=== PATIENT | female | born 1980 | race Caucasian/White ===

== ENCOUNTER → 2020-07-25 07:41 | Outpatient (REF) | payer OTHER, SELFPAY ==
--- NOTE | 2020-07-25 08:08 | CA_ITS ---
Acquisition Time: 2020-07-25 08:11:47 Total Exercise Time: 00:05:31 Test Indications: Chest Pain Medications: OMEPRAZOLE PRO AIR LORAZAPAM Protocol: ANN MARIE Max HR: 155 BPM 86% of Pred: 179 BPM Max BP: 178/078 mmHG Max Work Load: 7.0 METS Exercise stress test using Ann Marie protocol, total of 5 min 31 sec. Pt tolerated well, denies any anginal sx. EKG with isolated PVC's. No ischemic changes seen during exercise or in recovery. Hypotensive response to exercise. Test reviewed with Dr. Butler. Referred By: Jeff Yuan Overread By: Lisseth Shipley NP
== END ==
LOC: HO.CARD 07:41
PROVIDERS: Visit Provider Internal Medicine Medical Oncology
DX: R07.9 Chest pain, unspecified (principal); R20.2 Paresthesia of skin; E66.9 Obesity, unspecified
CPT/HCPCS: 93017; 93018

== ENCOUNTER 2020-08-03 16:57 | Outpatient (REF) | payer OTHER, SELFPAY ==
--- NOTE | ~2020-08-03 | XR_ITS ---
EXAMINATION: XR CHEST CLINICAL INFORMATION: Chest pain COMPARISON: None TECHNIQUE: 2 views of the chest were obtained. FINDINGS: No significant abnormality is noted involving the heart, lungs, mediastinum, bony thorax or soft tissues. XR/XR chest 2V IMPRESSION: Unremarkable chest pain.
== END 2020-08-03 16:58 | disposition home or self-care (01) ==
LOC: HO.XRAY 16:57
PROVIDERS: PCP Internal Medicine Medical Oncology; Visit Provider Internal Medicine Medical Oncology
DX: R07.89 Other chest pain (principal)
CPT/HCPCS: 71046

== ENCOUNTER 2020-08-18 09:23 | Outpatient (REF) | payer OTHER, SELFPAY ==
--- NOTE | ~2020-08-18 | US_ITS ---
EXAMINATION: US ABDOMEN COMPLETE CLINICAL INFORMATION: Chest pressure. Epigastric pain. COMPARISON: Chest radiographs 08/03/2020 TECHNIQUE: Real-time imaging of the abdominal viscera. FINDINGS: PANCREAS: The pancreas is normal in size and contour and echogenicity. There is no pancreatic ductal distention or retroperitoneal effusion. ABDOMINAL AORTA: The proximal, mid, and distal segments are normal in caliber. INFERIOR VENA CAVA: Visualized portions are normal. LIVER: The liver is normal in size and smooth in contour. Echogenicity is borderline increased which may suggest mild hepatic steatosis. There is no focal hepatic parenchymal lesion or intrahepatic ductal dilatation. GALLBLADDER: The gallbladder is normal in size. There are no calculi, wall thickening, or pericholecystic fluid. Negative sonographic Ashton's sign. There are 2 small gallbladder polyps projecting into the lumen, both just under 3 mm. COMMON BILE DUCT: Normal in caliber measuring 0.4 cm in diameter. RIGHT KIDNEY: Normal. No hydronephrosis. No renal calculi or focal parenchymal lesions. The kidney measures 10.8 cm in maximum dimension. LEFT KIDNEY: Normal. No hydronephrosis. No renal calculi or focal parenchymal lesions. The kidney measures 11.4 cm in maximum dimension. SPLEEN: Normal. The spleen measures 9.3 cm in maximum dimension. FREE FLUID: None. US/US abdomen complete IMPRESSION: 1. Gallbladder: 2 small polyps both just under 3 mm. No calculi, gallbladder wall thickening, or biliary ductal dilatation. 2. Borderline hepatic steatosis. Normal pancreas. 3. No hydronephrosis.
== END 2020-08-18 09:24 | disposition home or self-care (01) ==
LOC: HO.US 09:23
PROVIDERS: PCP Internal Medicine Medical Oncology; Visit Provider Internal Medicine Medical Oncology
DX: R10.13 Epigastric pain (principal); R07.89 Other chest pain; E66.9 Obesity, unspecified
CPT/HCPCS: 76700

== ENCOUNTER 2021-11-07 10:10 | Outpatient (REF) | payer OTHER, SELFPAY ==
[2021-11-07 10:30] LABS: MANUAL DIFF FLAG NO
[2021-11-07 10:48] LABS: Basophils Absolute Auto 0.1 X10*3/uL (0.0-0.2); Basophils Percent Auto 1.3 % (0-2); Eosinophils Absolute Auto 0.2 X10*3/uL (0.0-0.4); Eosinophils Percent Auto 2.7 % (0-4); Hemoglobin 10.7 g/dl (12.0-16.0); Imm Gran Abs Auto 0.01 X10*3/uL (0.00-0.03); Imm Gran Pct Auto 0.1 % (0.0-0.4); Lymphocytes Absolute Auto 2.9 X10*3/uL (1.2-4.9); Lymphocytes Percent Auto 41.9 % (20-40); Mean Corpuscular HGB Conc 31.5 g/dl (31.0-35.0); Mean Corpuscular Hemoglobin 27.2 pg (27.0-33.0); Mean Corpuscular Volume 86.5 fL (80.0-98.0); Mean Platelet Volume 10.2 fL (9.4-12.3); Monocytes Absolute Auto 0.6 X10*3/uL (0.1-1.2); Monocytes Percent Auto 7.9 % (2-11); Neutrophils Absolute Auto 3.2 x10*3/uL (2.0-8.3); Neutrophils Percent Auto 46.1 % (45-73); Platelet Count 515 X10*3/uL (160-400); Red Blood Count 3.93 X10*6/uL (4.20-5.50); Red Cell Distribution Width 15.9 % (11.0-16.0)
[2021-11-07 11:20] LABS: Alanine Aminotransferase 12 U/L (0-31); Albumin Level 4.1 g/dL (3.5-5.0); Alkaline Phosphatase 77 U/L (39-117); Anion Gap 16 (12-20); Aspartate Amino Transferase 13 U/L (5-31); Bilirubin Total 0.4 mg/dL (0.0-1.0); Blood Urea Nitrogen 12 mg/dL (9-16); Calcium 9.3 mg/dL (8.4-10.2); Carbon Dioxide 24 mmol/L (22-29); Chloride 108 mmol/L (96-108); Cholesterol 198 mg/dL; Estimated Glomerular Filt Rate > 60; Glucose Fasting 92 mg/dL (60-99); HDL Cholesterol 42 mg/dL; LDL Cholesterol Calculated 133 mg/dl; Potassium 4.7 mmol/L (3.3-5.1); Sodium 143 mmol/L (135-145); Total Protein 6.9 g/dL (6.5-8.0); Triglycerides 116 mg/dL
== END 2021-11-07 10:11 | disposition home or self-care (01) ==
LOC: HO.LAB 10:10
PROVIDERS: PCP Internal Medicine Medical Oncology; Visit Provider Internal Medicine Medical Oncology
DX: E66.9 Obesity, unspecified (principal)
CPT/HCPCS: 36415; 80053; 80061; 85025

== ENCOUNTER → 2021-12-01 12:33 | Outpatient (BNVA) | payer OTHER, SELFPAY | PROVIDERS: PCP Internal Medicine Medical Oncology; Visit Provider Nurse Practitioner Family | DX: G47.00 Insomnia, unspecified (principal); R06.83 Snoring; R40.0 Somnolence | CPT/HCPCS: 99202 ==

== ENCOUNTER → 2021-12-25 13:01 | Outpatient (REF) | payer OTHER, SELFPAY | LOC: HO.SL 13:01 | PROVIDERS: PCP Internal Medicine Medical Oncology; Visit Provider Nurse Practitioner Family | DX: G47.00 Insomnia, unspecified (principal); R40.0 Somnolence; R06.83 Snoring | CPT/HCPCS: 95806 ==

== ENCOUNTER 2022-02-28 10:29 | Outpatient (REF) | payer OTHER, SELFPAY ==
--- NOTE | ~2022-02-28 | MM_ITS ---
EXAMINATION: MM SCREENING DIGITAL BREAST TOMOSYNTHESIS, BILATERAL CLINICAL INFORMATION: Screening. Asymptomatic. The lifetime risk of breast cancer based on the Tyrer-Cuzick Model is 7.7%. COMPARISON: Mammography: May 13, 2019 TECHNIQUE: Digital breast tomosynthesis is performed in both the craniocaudal and mediolateral oblique views along with computer-aided detection (CAD). Synthesized 2D images are generated from the tomosynthesis. FINDINGS: There are scattered areas of fibroglandular density (ACR BI-RADS breast composition Category b). There are no significant masses, abnormal calcifications, or other abnormalities. MM/MM tomosynthesis screening BI IMPRESSION: No significant changes from prior exam. ASSESSMENT: BI-RADS 1: Negative RECOMMENDATION: Routine annual mammography screening. This patient's information was entered into a reminder system with a target due date for their next mammogram.
== END 2022-02-28 10:30 | disposition home or self-care (01) ==
LOC: HO.MAMMO 10:29
PROVIDERS: PCP Internal Medicine Medical Oncology; Visit Provider Internal Medicine Medical Oncology
DX: Z12.31 Encounter for screening mammogram for malignant neoplasm of breast (principal)
CPT/HCPCS: 77063; 77067

== ENCOUNTER → 2022-04-16 09:22 | Outpatient (BNVA) | payer OTHER, SELFPAY | PROVIDERS: PCP Internal Medicine Medical Oncology; Visit Provider Nurse Practitioner Family | DX: R20.0 Anesthesia of skin (principal); R20.2 Paresthesia of skin; G47.00 Insomnia, unspecified; R06.83 Snoring | CPT/HCPCS: 99212 ==

== ENCOUNTER → 2022-09-17 09:00 | Outpatient (BNVA) | payer OTHER, SELFPAY | PROVIDERS: PCP Internal Medicine Medical Oncology; Visit Provider Nurse Practitioner Family | DX: R20.0 Anesthesia of skin (principal); R20.2 Paresthesia of skin; G47.00 Insomnia, unspecified; R06.83 Snoring | CPT/HCPCS: 99212 ==

== ENCOUNTER 2023-02-18 09:18 | Emergency (ER) | payer OTHER, SELFPAY ==
--- NOTE | ~2023-02-18 | XR_ITS ---
EXAMINATION: XR LUMBOSACRAL SPINE CLINICAL INFORMATION: Lower back pain COMPARISON: None available. TECHNIQUE: Three views of the lumbosacral spine. FINDINGS: There is normal lumbar lordosis. The vertebral heights, alignment and disc heights are normal. No visible acute fracture, dislocation or subluxation seen. No aggressive lytic or sclerotic process. The paravertebral soft tissues are normal. XR/XR lumbar spine 2-3V IMPRESSION: Unremarkable lumbar spine exam.
[2023-02-18 09:39] VITALS: BP 117/64; PULSE 71; RESP 18; TEMP 36.6; O2SAT 98
[2023-02-18 09:48] VITALS: BP 117/45; PULSE 73; RESP 16; TEMP 36.8; O2SAT 98
--- NOTE | 2023-02-18 09:59 | ED.BACK ---
HPI - Back Pain/Injury General Chief Complaint: Back Pain/Injury Stated Complaint: back pain Time Seen by Provider: 02/18/23 09:55 Source: patient Mode of arrival: ambulatory Limitations: no limitations History of Present Illness HPI Narrative: 42 year old female hx of insomnia presents w/ lower back pain for the past 3 days worsening. Patient reports that this started at work while lifting creates weighed about 20 lb she reports when she went to put a great down and then stood up she immediately started having pain to the right lower back, pain is worse with movement better at rest. She reports she has had back pain in the past this feels similar. She reports at this time pain radiates all over. She denies numbness, tingling, saddle paresthesias, urinary/bowel incontinence/retention, weakness, fevers, chills, history of IV drug abuse. Related Data Home Medications Medication Instructions Recorded Confirmed fexofenadine-pseudoephedrine ER 1 tab PO QAM 12/01/21 12/01/21 180 mg-240 mg tablet,ext.release 24 hr (Natasha-D 24 Hour) fluoxetine 10 mg capsule 30 mg PO DAILY 12/01/21 12/01/21 omeprazole 40 mg capsule,delayed 40 mg PO DAILY 12/01/21 12/01/21 release valacyclovir 500 mg tablet 500 mg PO DAILY PRN 12/01/21 12/01/21 Previous Rx's Medication Instructions Recorded trazodone 50 mg tablet 50 mg PO BEDTIME 30 days #30 tabs 09/17/22 lidocaine 5 % topical patch 1 patch topical DAILY PRN pain #15 02/18/23 ea naproxen 500 mg tablet 500 mg PO BID #14 tabs 02/18/23 prednisone 20 mg tablet 40 mg (2 x 20 mg) PO DAILY 5 days 02/18/23 #10 tabs Allergies Allergy/AdvReac Type Severity Reaction Status Date / Time Seasonal Allergies Allergy Runny Nose Verified 09/17/22 09:16 Review of Systems Review of Systems: Constitutional : No Weight loss, No Fever, No Chills, ENT/Mouth : No Hearing loss, No Ear Pain, No Nasal Congestion, No Sinus Pain, No Hoarseness, No sore throat, No Rhinorrhea, No Swallowing Difficulty Cardiovascular : No Chest Pain, No SOB Respiratory : No Cough, No Dyspnea Gastrointestinal : No Nausea, No Vomiting, No Diarrhea, No abdominal Pain, No Hematochezia, No Melena Genitourinary : No Dysuria, No Urinary Frequency, No Hematuria, No Urinary Incontinence, Musculoskeletal : positive back pain Skin : No Skin Lesions, No rash Neuro : No Weakness, No Numbness, No Paresthesias, no loss of bowel or bladder incontinence, no saddle anesthesia Yes all other systems are reviewed and are negative [facility] Past Medical History Attestation statement: The following information was validated with the patient. Source: old records reviewed and nursing notes reviewed Family History Family History (Updated 09/17/22 @ 09:18 by Ele Dubon CMA) Mother TIA (transient ischemic attack) Social History Social History (Updated 09/17/22 @ 09:18 by Ele Dubon CMA) Household Members: None Alcohol intake: never Patient Tobacco Use Status: Former Tobacco user Advance Directives: No Advance Directives Information Provided: No Physical Exam Vital Signs: Vital Signs: Last Vital Signs Temp 98.2 F 02/18/23 09:48 Pulse 73 02/18/23 09:48 Resp 16 02/18/23 09:48 BP 117/45 L 02/18/23 09:48 Pulse Ox 98 02/18/23 09:48 O2 Del Method Room Air 02/18/23 09:48 BMI result Body Mass Index 30.0 vss Appearance: Alert.? Oriented X3.? No acute distress.? Head: Normocephalic, atraumatic, no step-offs or deformities Eyes: Pupils equal, round and reactive to light.? CVS: Normal heart rate and rhythm.? Pulses normal.? Respiratory: No respiratory distress.? Breath sounds normal.? Abdomen: Soft and nontender.? Skin: Skin warm and dry.? Normal skin color.? Normal skin turgor.? Extremities: No lower extremity edema.? No calf ttp. 5/5 strength to bilateral upper and lower extremities Back: No midline tenderness, no C-spine tenderness, full range of motion, no CVA tenderness bilaterally + right sided paraspinous tenderness throught lumbar region. No midline tenderness. Neuro: Oriented X 3.? No motor deficit.? No sensory deficit. CN 2-12 intact . No saddle paresthesias. Ambulating with steady gait normal coordination. Course Reevaluation(s) Reevaluation #1: Patient has been ambulatory without difficulty, still complaining of pain however. Will discharge home with NSAID, prednisone, Lidoderm patch. X-ray unremarkable. Will give her follow-up with [facility]. Educated patient on diagnosis and treatment plan, answered all question, patient verbalizes understanding. At this time patient will be discharged home, advised to return with new or worsening symptoms. Educated on worrisome signs and symptoms and when to return. At this time I feel comfortable discharge home. Time: 11:24 Medications Administered Discontinued Medications Generic Name Dose Route Start Last Admin Trade Name Leland PRN Reason Stop Dose Admin Ketorolac Tromethamine 30 mg 02/18/23 10:00 02/18/23 10:10 Ketorolac Tromethamine 15 Mg/Ml Vial IM 02/18/23 10:01 30 mg ONCE ONE Administration Lidocaine 1 patch 02/18/23 10:00 02/18/23 10:10 Lidocaine 4 % Patch Adh..Patch TRANSDERMA 02/18/23 10:01 1 patch ONCE ONE Administration Protocol Medical Decision Making Medical Decision Making MDM Narrative: 42-year-old female presents with right-sided lower back pain status post lifting. Started on Saturday. Flag symptoms Physical exam significant for right sided paraspinous tenderness throught lumbar region. No midline tenderness. Patient is ambulatory. No saddle paresthesias. Vital signs are stable. No fevers This is likely lumbar paraspinous muscle spasms versus lumbago versus herniated disc versus sciatica versus lumbar radiculopathy. Unlikely cauda equina, epidural abscess, cord compression. Plan will give Toradol, Lidoderm patch. Imaging pending Differential Diagnosis Differential Diagnoses: The differential diagnosis associated with the presentation includes This is likely lumbar paraspinous muscle spasms versus lumbago versus herniated disc versus sciatica versus lumbar radiculopathy. Unlikely cauda equina, epidural abscess, cord compression. Admission/Observation Consideration of admission/observation: Escalation of care including admission/observation considered not indicated Independent Interpretation I performed an independent interpretation of an: Plain X-Ray Radiology Impression Discussion of test interpretation with radiology: I have reviewed the radiologist's reading. Tests considered The following testing was considered but not selected: no red flag sx no indication for MRI Prescription Management I considered prescription management with: Pain Medication and Other (prednisone, lidoderm ) Chronic Conditions Patient?s care impacted by: Other (insomnia ) Critical Care Time Critical Care Time Critical Care Time: No Discharge Plan Discharge Clinical Impression: Lumbar radiculopathy Patient Disposition: Home, Self-Care Instructions: Lumbar Radiculopathy (ED), Back Pain (ED) Additional Instructions: Take your medications as prescribed. If you were prescribed antibiotics today, it is important that you take your medication to their entirety, do not skip any doses, do not finish them early. Follow-up with your primary care provider this week. Return to the emergency department with new or worsening symptoms. Such as fevers, chills, chest pain, shortness of breath, nausea, vomiting, dizziness, headache, vision changes, lethargy In case of emergency call 911 XR/XR lumbar spine 2-3V IMPRESSION: Unremarkable lumbar spine exam. Prescriptions: New prednisone 20 mg tablet 40 mg PO DAILY 5 Days Qty: 10 0RF lidocaine 5 % adhesive patch,medicated 1 patch topical DAILY PRN (Reason: pain) Qty: 15 0RF Rx Instructions: leave on most painful area for up to 12 hrs naproxen 500 mg tablet 500 mg PO BID Qty: 14 0RF No Action omeprazole 40 mg capsule,delayed release(DR/EC) 40 mg PO DAILY fexofenadine-pseudoephedrine [Natasha-D 24 Hour] 180-240 mg tablet extended release 24 hr 1 tab PO QAM fluoxetine 10 mg capsule 30 mg PO DAILY valacyclovir 500 mg tablet 500 mg PO DAILY PRN trazodone 50 mg tablet 50 mg PO BEDTIME 30 Days Qty: 30 2RF Referrals: Jeff Yuan MD [Primary Care Provider] - 2 days [facility] [Provider Group] - 2 days Stand Alone Forms: Work/School Release
[2023-02-18] MEDS: Ketorolac Tromethamine 15 MG/ML VIAL 30 MG IM (10:10)
[2023-02-18] MEDS: Lidocaine 4 % Patch ADH..PATCH 1 PATCH TRANSDERMA (10:10)
--- NOTE | 2023-02-18 10:14 | PC.NURSE ---
medication administered per provider order.
== END 2023-02-18 11:51 | disposition home or self-care (01) ==
PROVIDERS: Emergency Provider Emergency Medicine; PCP Internal Medicine Medical Oncology
DX: M54.16 Radiculopathy, lumbar region (principal); Z87.891 Personal history of nicotine dependence
CPT/HCPCS: 72100; 96372; 99283; 99284; J1885

== ENCOUNTER 2023-03-04 10:40 | Outpatient (AMB) | payer OTHER, SELFPAY ==
[2023-03-04 10:44] VITALS: BP 132/86; PULSE 58; O2SAT 96; BMI 30.6
--- NOTE | 2023-03-04 10:44 | MHC.OFFVIS ---
Intake Vital Signs 03/04/23 10:44 Height 5 ft 9 in Weight 207 lb 6 oz BMI 30.6 BP 132/86 Blood Pressure Location Rt brachial Position Sitting Pulse 58 Pulse Source Pulse Oximeter Pulse Oximetry (%) 96 Oxygen Delivery Method Room Air Intake Visit Reasons: 6m follow up/ Confirmed Intake Note: Pt presents to the office today for a 6 month follow up. Allergies Seasonal Allergies Allergy (Verified 03/04/23 10:48) Runny Nose HPI HPI Comments History of Present Illness Details 42 y/o female patient presents for follow up of insomnia. Pt reports that she has not refilled her trazodone and tried melatonin 12 mg. She sleeps well with melatonin 12 mg. She had a new bed, but she feels it is not comfortable. She also shares bed with her 6 year old son now, and it disrupt her sleep. She strained her lower back at work, and plans to schedule with [employer]. She can move and walk but still has restriction. She had hx of cervical spine bulging disc. The home sleep study result was no evidence of sleep apnea. The AHI was 2.6, average O2 sat was 93%, with lowest O2 sat was 82%. Below 88% for 0.3 min. No headache reports. PFSH Family History Mother TIA (transient ischemic attack) Social History Household Members: None Alcohol intake: never Patient Tobacco Use Status: Former Tobacco user Review of Systems Const All systems reviewed & are unremarkable except as noted in HPI and below ENT Reports Normal hearing present Neuro Reports Normal hearing present Physical Exam Vital Signs: Last Vital Signs Pulse 58 03/04/23 10:44 BP 132/86 03/04/23 10:44 Pulse Ox 96 03/04/23 10:44 Oxygen Delivery Method Room Air 03/04/23 10:44 BMI result Body Mass Index 30.6 Const General: cooperative Nutritional Appearance: obese Orientation/consciousness: patient oriented x3 Neck Neck: Yes full ROM and Yes supple Resp Effort & Inspection: normal respiratory effort and able to speak in complete sentences Neuro General: patient oriented x3, gait normal, moves all extremities and no focal motor deficits Cranial nerves: Yes Midline tongue present, Yes Symmetric palate elevation present, Yes Normal hearing present, Yes Ability to bilaterally rotate head present and Yes Ability to bilaterally elevate shoulders present Cognition (Neuro): normal cognition Deep tendon reflexes (DTR's): Right triceps reflex intensity grade: 2+, Left triceps reflex intensity grade: 2+, Rt Biceps (C5, C6): 2+, Left biceps reflex intensity grade: 2+, Right brachioradialis reflex intensity grade: 2+ and Left brachioradialis reflex intensity grade: 2+ Psych Appearance: grossly normal Mental Status: mental status grossly normal Speech and movement: Normal speech and movement present Affect: Anxious affect present Assessment & Plan Assessment & Plan (1) Insomnia: Code(s): G47.00 - Insomnia, unspecified (2) Snoring: Code(s): R06.83 - Snoring Plan Continue to practice good sleep hygiene. Continue to use melatonin 12 mg as needed. Coding Level of Care Code Est Pt Level 3 (92088) Diagnoses Insomnia G47.00 Snoring R06.83
== END 2023-03-04 11:08 | disposition home or self-care (01) ==
PROVIDERS: PCP Internal Medicine Medical Oncology; Visit Provider Nurse Practitioner Family
DX: G47.00 Insomnia, unspecified (principal); R06.83 Snoring
CPT/HCPCS: 99213

== ENCOUNTER → 2023-03-04 10:40 | Outpatient (BNVA) | payer OTHER, SELFPAY | PROVIDERS: PCP Internal Medicine Medical Oncology; Visit Provider Nurse Practitioner Family | DX: G47.00 Insomnia, unspecified (principal); R06.83 Snoring | CPT/HCPCS: 99212 ==

== ENCOUNTER 2023-03-22 10:04 | Outpatient (REF) | payer OTHER, SELFPAY ==
--- NOTE | ~2023-03-22 | XR_ITS ---
EXAMINATION: XR CHEST CLINICAL INFORMATION: Cough COMPARISON: Previous chest x-ray July 2020 TECHNIQUE: 2 views of the chest were obtained. FINDINGS: No significant abnormality is noted involving the heart, lungs, mediastinum, bony thorax or soft tissues. XR/XR chest 2V IMPRESSION: Unremarkable examination.
[2023-03-22 10:44] LABS: MANUAL DIFF FLAG NO
[2023-03-22 10:47] LABS: Basophils Absolute Auto 0.1 X10*3/uL (0.0-0.2); Basophils Percent Auto 0.4 % (0-2); Eosinophils Percent Auto 0.1 % (0-4); Hematocrit 35.9 % (37.0-47.0); Hemoglobin 11.6 g/dl (12.0-16.0); Imm Gran Abs Auto 0.05 X10*3/uL (0.00-0.03); Imm Gran Pct Auto 0.4 % (0.0-0.4); Lymphocytes Absolute Auto 2.3 X10*3/uL (1.2-4.9); Lymphocytes Percent Auto 16.4 % (20-40); Mean Corpuscular HGB Conc 32.3 g/dl (31.0-35.0); Mean Corpuscular Volume 86.5 fL (80.0-98.0); Mean Platelet Volume 9.6 fL (9.4-12.3); Neutrophils Absolute Auto 10.4 x10*3/uL (2.0-8.3); Neutrophils Percent Auto 75.7 % (45-73); Platelet Count 438 X10*3/uL (160-400); Red Blood Count 4.15 X10*6/uL (4.20-5.50); Red Cell Distribution Width 16.2 % (11.0-16.0); White Blood Count 13.8 X10*3/uL (4.8-10.8)
[2023-03-22 13:59] LABS: Alanine Aminotransferase 10 U/L (0-31); Albumin Level 4.3 g/dL (3.5-5.0); Alkaline Phosphatase 89 U/L (39-117); Anion Gap 16 (12-20); Aspartate Amino Transferase 16 U/L (5-31); Bilirubin Total 0.3 mg/dL (0.0-1.0); Blood Urea Nitrogen 10 mg/dL (9-16); Carbon Dioxide 22 mmol/L (22-29); Chloride 104 mmol/L (96-108); Estimated Glomerular Filt Rate > 60; Glucose Random 101 mg/dL (60-115); Potassium 3.9 mmol/L (3.3-5.1); Sodium 138 mmol/L (135-145); Total Protein 7.9 g/dL (6.5-8.0)
== END 2023-03-22 10:05 | disposition home or self-care (01) ==
LOC: HO.LAB 10:04
PROVIDERS: PCP Internal Medicine Medical Oncology; Visit Provider Internal Medicine Medical Oncology
DX: R05.9 Cough, unspecified (principal); E66.3 Overweight
CPT/HCPCS: 36415; 71046; 80053; 85025

== ENCOUNTER 2023-03-27 15:39 | Emergency (ER) | payer OTHER, SELFPAY ==
--- NOTE | ~2023-03-27 | XR_ITS ---
EXAMINATION: XR CHEST CLINICAL INFORMATION: Cough and shortness of breath COMPARISON: 03/22/2023 TECHNIQUE: 2 views of the chest were obtained. FINDINGS: No significant abnormality is noted involving the heart, lungs, mediastinum, or bony thorax. Left supraclavicular rounded density again seen. Left axillary calcification again noted. XR/XR chest 2V IMPRESSION: No acute cardiopulmonary disease or interval change.
[2023-03-27 16:10] VITALS: BP 121/80; PULSE 81; RESP 18; TEMP 37.6; O2SAT 92; BMI 28.5
--- NOTE | 2023-03-27 16:10 | ED.URI ---
HPI - URI/Sore Throat General Chief Complaint: Upper Respiratory Symptoms Stated Complaint: possible respiratory infection Time Seen by Provider: 03/27/23 17:40 Source: patient Mode of arrival: ambulatory Limitations: no limitations History of Present Illness HPI Narrative: Patient is a 42-year-old female who presents emergency department for evaluation of headache, cough, congestion, chest discomfort while coughing, shortness of breath fatigue, dyspnea with exertion. Symptom onset 2 weeks ago progressively worsening. Denies fevers, chills, neck pain, neck stiffness, numbness or tingling of the extremities. Related Data Home Medications Medication Instructions Recorded Confirmed fexofenadine-pseudoephedrine ER 1 tab PO QAM 12/01/21 12/01/21 180 mg-240 mg tablet,ext.release 24 hr (Natasha-D 24 Hour) fluoxetine 10 mg capsule 30 mg PO DAILY 12/01/21 12/01/21 omeprazole 40 mg capsule,delayed 40 mg PO DAILY 12/01/21 12/01/21 release valacyclovir 500 mg tablet 500 mg PO DAILY PRN 12/01/21 12/01/21 Previous Rx's Medication Instructions Recorded trazodone 50 mg tablet 50 mg PO BEDTIME 30 days #30 tabs 09/17/22 lidocaine 5 % topical patch 1 patch topical DAILY PRN pain #15 02/18/23 ea Allergies Allergy/AdvReac Type Severity Reaction Status Date / Time Seasonal Allergies Allergy Runny Nose Verified 03/04/23 10:48 Review of Systems Review of Systems: Yes all other systems are reviewed and are negative PMFSH Past Medical History Attestation statement: The following information was validated with the patient. Source: old records reviewed Family History Family History Mother TIA (transient ischemic attack) Social History Social History Household Members: None Alcohol intake: never Patient Tobacco Use Status: Former Tobacco user Smoked in Last 30 Days: No Use of substances other than those prescribed or required for medical reasons: No Advance Directives: No Advance Directives Information Provided: No Patient : No Physical Exam Vital Signs: Vital Signs: Last Vital Signs Temp 99.0 F 03/27/23 19:37 Pulse 71 03/27/23 19:37 Resp 16 03/27/23 19:37 BP 117/56 L 03/27/23 19:37 Pulse Ox 93 03/27/23 19:37 O2 Del Method Room Air 03/27/23 19:37 BMI result Body Mass Index 28.5 Appearance: Alert.?Oriented to person, place and time. No acute distress.?Normal affect. Eyes: Pupils equal, round and reactive to light.? ENT: Pharynx normal.?? Neck: Normal inspection.? Neck supple.??No cervical lymphadenopathy. CVS: Heart sounds normal. Normal heart rate and rhythm.? Pulses normal.?? Respiratory: No respiratory distress.? Lung sounds with rhonchi to the bilateral upper lobes clear to the bases? Abdomen: Soft and non-tender. Normoactive bowel sounds. Skin: Skin warm and dry.? Normal skin color. Extremities: No lower extremity edema.? No calf ttp? Neuro: Moves all extremities spontaneously. Sensation intact bilaterally. No focal neuro deficits. Ambulates with normal steady gait. Course Course Course Narrative: RME: 42 yo M/F w/PMHx Asthma presenting to the ED c/o MACARIO, cough & SOB x weeks. +CP when coughing good air movement, satting 92% RA. Dry cough appreciated viral testing, CXR, ED bronch protocol ordered Full HPI, ROS and PE to be performed by primary ED provider. Medications Administered Discontinued Medications Generic Name Dose Route Start Last Admin Trade Name Freq PRN Reason Stop Dose Admin Albuterol Sulfate 4 puff 03/27/23 16:33 03/27/23 16:36 Albuterol Sulfate 90 Mcg 8 Gm Inhaler INHALE 03/27/23 16:34 4 puff ONCE ONE Administration Prednisone 60 mg 03/27/23 17:54 03/27/23 18:11 Prednisone 20 Mg Tablet PO 03/27/23 17:55 60 mg ONCE ONE Administration Medical Decision Making Medical Decision Making MDM Narrative: Patient is a 42 old female with past medical history of asthma presenting to emergency department for evaluation of URI symptoms as per HPI. At time examination she appears fatigued, at rest she is without increased work of breathing able speak clear full sentences. She does have some dyspnea upon exertion, ambulatory O2 trial for O2 saturation remained at 92% and above. She received 4 puffs of an albuterol inhaler and prednisone and reports significant improvement She is noted to be COVID-19 positive. Given her duration of symptoms, would not be a candidate for Paxlovid. Chest x-ray is without acute cardiopulmonary abnormalities, no evidence of pneumonia. At this time plan for discharge home, outpatient follow-up with primary care provider, reviewed worrisome signs and symptoms that would warrant re-evaluation emergency department. All questions answered. Stable for discharge. Differential Diagnosis Differential Diagnoses: The differential diagnosis associated with the presentation includes Admission/Observation Consideration of admission/observation: Escalation of care including admission/observation considered (See note above and course narrative for further detail) Lab Data MDM Lab Attestation statement: I reviewed the patient's lab results. Labs: Lab Results 03/27/23 Range/Units 16:56 COVID-19 (GENE) Positive A (Negative) COVID-19 Clin Com See Note Influenza Type A (CALLIE) Negative (Negative) Influenza Type B (CALLIE) Negative (Negative) Influenza A & B Note See Note Independent Interpretation I performed an independent interpretation of an: Plain X-Ray (I personally interpreted chest x-ray and agree with radiologist impression.) Radiology Impression Discussion of test interpretation with radiology: I have reviewed the radiologist's reading. Radiologist Impression: XR/XR chest 2V IMPRESSION: No acute cardiopulmonary disease or interval change. External Record Review External record reviewed: Outpatient record Prescription Management I considered prescription management with: Antiviral (Given duration of symptoms, would not be candidate for Paxlovid) Chronic Conditions Patient?s care impacted by: Other (Asthma) Discharge Plan Discharge Clinical Impression: COVID-19 Patient Disposition: Home, Self-Care Instructions: COVID-19 (Coronavirus Disease 2019) (ED) Additional Instructions: Be sure to rest, stay well hydrated drinking plenty of fluids, eat small frequent meals. Tylenol/ibuprofen can be used as needed for fever/pain. [id number] cold medications may be helpful as well for symptoms. Saline nasal spray, humidifier may be helpful for nasal congestion. You may return to the emergency department with any new or worsening symptoms or concerns. Follow-up with your primary care provider as needed. Should remain out of school/ work until symptoms have resolved and have been without a fever for 24 hours without the use of Tylenol or ibuprofen. Prescriptions: No Action lidocaine 5 % adhesive patch,medicated 1 patch topical DAILY PRN (Reason: pain) Qty: 15 0RF Rx Instructions: leave on most painful area for up to 12 hrs omeprazole 40 mg capsule,delayed release(DR/EC) 40 mg PO DAILY fexofenadine-pseudoephedrine [[place]-D 24 Hour] 180-240 mg tablet extended release 24 hr 1 tab PO QAM fluoxetine 10 mg capsule 30 mg PO DAILY valacyclovir 500 mg tablet 500 mg PO DAILY PRN trazodone 50 mg tablet 50 mg PO BEDTIME 30 Days Qty: 30 2RF Referrals: Jeff Yuan MD [Primary Care Provider] -
[2023-03-27] MEDS: Albuterol Sulfate 90 MCG 8 GM INHALER 4 PUFF INHALE (16:36)
[2023-03-27 16:37] VITALS: PULSE 88; RESP 16; O2SAT 92
[2023-03-27 17:36] LABS: COVID-19 Test Positive (Negative); IDNOW Serial# 58CA691E
[2023-03-27 17:38] LABS: IDNOW Serial# 08D9AD1C; Influenza A Negative (Negative); Influenza B2 Negative (Negative)
--- NOTE | 2023-03-27 17:55 | MHC.EDTECH ---
Walked patient and patient destated to 88% and Dottie BURGESS notified
[2023-03-27] MEDS: predniSONE 20 MG TABLET 60 MG PO (18:11)
[2023-03-27 19:37] VITALS: BP 117/56; PULSE 71; RESP 16; TEMP 37.2; O2SAT 93
--- NOTE | 2023-03-27 19:41 | MHC.EDTECH ---
Walked patient and 02 stat 92%
== END 2023-03-27 20:36 | disposition home or self-care (01) ==
PROVIDERS: Physician Assistant; Emergency Provider Emergency Medicine; PCP Internal Medicine Medical Oncology
DX: U07.1 COVID-19 (principal); J45.909 Unspecified asthma, uncomplicated
CPT/HCPCS: 71046; 87502; 87635; 94640; 99284

== ENCOUNTER 2023-04-01 10:41 | Emergency (ER) | payer OTHER, SELFPAY ==
--- NOTE | 2023-04-01 11:27 | ED.EYEPROB ---
HPI - Eye Problem General Chief complaint: Eye Problems Stated complaint: L eye pain Time Seen by Provider: 04/01/23 15:19 Source: patient Mode of arrival: ambulatory Limitations: no limitations History of Present Illness HPI Narrative: Patient is a 42-year-old female presenting to the emergency department with chief complaint of pain around left eye. Reports she has had nasal congestion since dejon COVID, tested positive 5 days ago. Reports sinus pain and pressure as well as headache. Denies foreign body sensation to eye. States that she feels as though her Covid symptoms are improving but her sinus pain is increasing. Denies recent fevers. She denies any discharge or drainage from on a. Denies pain with eye movement. Denies redness or swelling. Denies vision changes. Denies contact lens use, reports has had LASIK procedure. chief complaint: other (sinus pain) Onset (ago): day(s) Onset description: gradual Duration: constant Location: left eye Severity: severe If Pain, Quality: aching Context: recent URI Associated symptoms: headache Treatments Prior to Arrival: NSAID Related Data Home Medications Medication Instructions Recorded Confirmed fexofenadine-pseudoephedrine ER 1 tab PO QAM 12/01/21 12/01/21 180 mg-240 mg tablet,ext.release 24 hr (Natasha-D 24 Hour) fluoxetine 10 mg capsule 30 mg PO DAILY 12/01/21 12/01/21 omeprazole 40 mg capsule,delayed 40 mg PO DAILY 12/01/21 12/01/21 release valacyclovir 500 mg tablet 500 mg PO DAILY PRN 12/01/21 12/01/21 Previous Rx's Medication Instructions Recorded trazodone 50 mg tablet 50 mg PO BEDTIME 30 days #30 tabs 09/17/22 lidocaine 5 % topical patch 1 patch topical DAILY PRN pain #15 02/18/23 ea amoxicillin 875 mg-potassium 1 tab PO BID #13 tabs 04/01/23 clavulanate 125 mg tablet Allergies Allergy/AdvReac Type Severity Reaction Status Date / Time Seasonal Allergies Allergy Runny Nose Verified 04/01/23 11:31 Review of Systems Review of Systems: As per HPI. Yes all other systems are reviewed and are negative Constitutional: Constitutional: Reports as per HPI [facility] Family History Family History Mother TIA (transient ischemic attack) Social History Social History Household Members: None Alcohol intake: never Patient Tobacco Use Status: Former Tobacco user Advance Directives: No Advance Directives Information Provided: No Physical Exam Vital Signs: Vital Signs: Last Vital Signs Temp 97.8 F 04/01/23 11:29 Pulse 73 04/01/23 11:29 Resp 20 04/01/23 11:29 BP 135/63 04/01/23 11:29 Pulse Ox 92 04/01/23 11:29 O2 Del Method Room Air 04/01/23 11:29 BMI result Body Mass Index 28.6 Vital signs have been reviewed and appear to be correct. Blood pressure normal. Heart rate normal. Respiratory rate normal. Temperature normal. Oxygen saturation normal. Const: General: cooperative, healthy appearing and no acute distress Orientation/consciousness: oriented to person, oriented to place, oriented to time and patient oriented x3 Limitations: no limitations HEENT: Head: Yes normocephalic and Yes atraumatic Ears: external ears normal General nose exam: Normal external nose present, Normal nasal mucous membranes and turbinates present, Normal septum present and No nasal discharge present Face and sinus: Yes face symmetric, No erythema, No edema and Yes sinus tenderness (left frontal and ethmoid tenderness) Mouth: oropharynx normal and moist mucous membranes Throat: Yes uvula midline Eyes: Other: IOP L eye 17, IOP R eye 13 General: appearance normal, both eyes and all related structures Visual Olson: normal visual olson by confrontation Alignment and Position: alignment normal Eyelids: Yes eyelids normal Conjunctivae: conjunctivae normal Sclerae: sclerae normal Corneas: corneas normal Pupils: Equal, round and reactive pupils present EOM: EOMs intact bilaterally Neck: Neck: Yes normal visual inspection and Yes supple Resp: Effort & Inspection: normal respiratory effort and able to speak in complete sentences Auscultation: clear to auscultation bilaterally Cardio: Rate: regular rate Rhythm: regular rhythm Heart sounds: S1 normal heart sound present and S2 normal heart sound present GI: Palpation (GI): Soft to palpation and nontender Auscultation: normoactive bowel sounds : General: Yes no CVA tenderness Back/Spine/Pelvis: Back: no CVA tenderness Skin: General skin exam: elasticity normal and turgor normal Neuro: General: oriented to person, oriented to place, oriented to time, patient oriented x3, moves all extremities, no focal motor deficits and CN's II-XI intact bilaterally Cranial nerves: Yes Equal, round and reactive pupils present Cognition (Neuro): normal cognition Extrem: General: Yes full ROM, Yes no pedal edema and Yes no calf tenderness Psych: Mental Status: mental status grossly normal Affect: normal affect Thought process: Normal thought process present Course Course Course Narrative: This is a rapid medical exam. deferred additional HPI, ROS, PE to primary provider. 42 yo female with no known medical history here with complaints of headache, dizziness, left eye pain x 3 days. No vision changes, discharge. Diagnosed with COVID 03/27. VSS. Medical Decision Making Medical Decision Making MDM Narrative: Patient is a 42-year-old female presenting to the emergency department with chief complaint of pain around left eye. On exam patient is awake, A+Ox3, VS WNL, afebrile, normal neurological exam without focal deficits, physical exam findings as above. IOP L eye 17, R eye 13. Given reported symptoms and physical exam findings, likely sinusitis. Do not suspect acute angle closure glaucoma, trigeminal neuralgia, optic neuritis, orbital cellulitis. Will treat with course of Augmentin for acute sinusitis, patient given 1st dose in the ED. Instructed patient to follow-up with primary care provider. Return precautions discussed at bedside. Patient verbalized understanding of and agreement with plan. Differential Diagnosis Differential Diagnoses: The differential diagnosis associated with the presentation includes As per MDM. External Record Review External record reviewed: Inpatient record, Office record and Outpatient record Prescription Management I considered prescription management with: Antibiotic Discharge Plan Discharge Clinical Impression: Acute frontal sinusitis Patient Disposition: Home, Self-Care Instructions: Rhinosinusitis (DC) Additional Instructions: You were evaluated in the emergency department today for pain around her left eye which is likely due to a sinus infection. You are being prescribed antibiotics, please complete the full course as prescribed. Please follow-up with your primary care provider this week. Return to the emergency department if you develop worsening pain, changes in vision, worsening headaches, fever 100.4? F or greater, or any other concerning symptoms. Prescriptions: New amoxicillin-pot clavulanate 875-125 mg tablet 1 tab PO BID Qty: 13 0RF Rx Instructions: You were given the first dose in the emergency department today. No Action lidocaine 5 % adhesive patch,medicated 1 patch topical DAILY PRN (Reason: pain) Qty: 15 0RF Rx Instructions: leave on most painful area for up to 12 hrs omeprazole 40 mg capsule,delayed release(DR/EC) 40 mg PO DAILY fexofenadine-pseudoephedrine [Natasha-D 24 Hour] 180-240 mg tablet extended release 24 hr 1 tab PO QAM fluoxetine 10 mg capsule 30 mg PO DAILY valacyclovir 500 mg tablet 500 mg PO DAILY PRN trazodone 50 mg tablet 50 mg PO BEDTIME 30 Days Qty: 30 2RF
[2023-04-01 11:29] VITALS: BP 135/63; PULSE 73; RESP 20; TEMP 36.6; O2SAT 92; BMI 28.6
[2023-04-01] MEDS: Amoxicillin/Potassium Clav 875 MG TABLET PO (16:45)
== END 2023-04-01 16:49 | disposition home or self-care (01) ==
PROVIDERS: Emergency Provider Emergency Medicine; PCP Internal Medicine Medical Oncology
DX: J01.10 Acute frontal sinusitis, unspecified (principal); Z87.891 Personal history of nicotine dependence
CPT/HCPCS: 99283

== ENCOUNTER 2023-05-06 09:48 | Outpatient (AMB) | payer OTHER, SELFPAY ==
--- NOTE | 2023-05-06 09:53 | A.OFFVIS_ITS ---
Intake Intake Visit Reasons: urinary inctoninence Intake Note: New Patient presents for initial visit for Urinary Incontinence Urology Medications: none Blood Thinner: none PVR: 0ml's Wrist Closer Required: No Accompanied by: Self / Same As Patient Allergies Seasonal Allergies Allergy (Verified 05/06/23 09:57) Runny Nose HPI HPI Comments History of Present Illness Details Lucy is a 42-year-old female patient of . She has a past medical history of allergies, depression, and GERD. She presents to the office today as a new patient for ongoing lower urinary tract symptoms. In discussion with the patient today she reports noting a lifelong issue with her being able to hold her urination. She reports noting urinary dribbling most of her life. When asked she does report having had 2 children via vaginal . She reports noting stress incontinence. She otherwise denies nocturia, hematuria, dysuria, foul smelling urine, changes to urinary stream, flank pain, fever, and or chills. She reports having followed up with [facility] and being told her pelvis is underlined and feels this might be related to her ongoing incontinence. She reports being sick the month of March and feels stress incontinence was worse as she was coughing more. When asked she denies utilizing adult diapers or pads. She reports utilizing panty liners and or extra toilet paper. In office urinalysis results reviewed with the patient today. PVR 0 mL. PFSH Family History Mother TIA (transient ischemic attack) Social History Household Members: None Alcohol intake: never Patient Tobacco Use Status: Former Tobacco user Review of Systems Const Reports no additional complaints Eyes Reports no additional complaints ENT Reports no additional complaints Card Reports no additional complaints Resp Reports no additional complaints GI Reports as per HPI Reports as per HPI Musc Reports as per HPI Neuro Reports no additional complaints Psych Reports as per HPI Endo Reports no additional complaints Adam/Lymph Reports no additional complaints Aller/Immun Reports no additional complaints Physical Exam Const General: cooperative, healthy appearing, comfortable, no acute distress, well developed, alert and awake Nutritional Appearance: overweight Orientation/consciousness: patient oriented x3 Limitations: no limitations HEENT Head: Yes normal to inspection, Yes normocephalic and Yes atraumatic Ears: hearing grossly normal bilaterally Eyes General: appearance normal, both eyes and all related structures Neck Neck: Yes normal visual inspection and Yes trachea midline Chest Chest palpation & inspection: normal inspection of the chest Resp Effort & Inspection: normal respiratory effort and able to speak in complete sen tences Cardio Rate: regular rate GI Inspection: Yes normal to inspection General: Yes no CVA tenderness Back/Spine/Pelvis Back: no CVA tenderness Skin General skin exam: no rashes or lesions noted Neuro General: patient oriented x3 Extrem General: Yes normal to inspection Psych Appearance: grossly normal and well kempt Mental Status: mental status grossly normal Speech and movement: Normal speech and movement present and Clear speech present Affect: normal affect Attitude: cooperative Thought process: Normal thought process present Thought content: Normal thought content present Insight: Fair insight present (Psych) Judgement: Fair judgement present (Psych) Office Procedures Post Void Residual Post Residual Void Post Void Residual (PVR): 0 [id number] Void Residual by ultrasound Results AMB Urinalysis, Automated UA Leukoctes 15 Donny/uL Last Edit by [employer] on 05/06/23 10:13 UA Nitrite Negative Last Edit by [employer] on 05/06/23 10:13 UA Urobilinogen 0.2 mg/dL Last Edit by [employer] on 05/06/23 10:13 UA Protein 0 mg/dL Last Edit by [employer] on 05/06/23 10:13 UA pH 6.0 Last Edit by [employer] on 05/06/23 10:13 UA Blood 0 Suhail/uL Last Edit by [employer] on 05/06/23 10:13 UA Specific [place] 1.030 Last Edit by [employer] on 05/06/23 10:13 UA Ketone Negative Last Edit by [employer] on 05/06/23 10:13 UA Bilirubin 0 mg/dL Last Edit by [employer] on 05/06/23 10:13 UA Glucose 0 mg/dL Last Edit by [employer] on 05/06/23 10:13 Results Reviewed Results Reviewed: Laboratory Last Values Urine pH (Auto) 6.0 05/06/23 10:12 Specific [place] (Auto) 1.030 05/06/23 10:12 Urine Protein (Auto) 0 mg/dL 05/06/23 10:12 Glucose (UA)(Auto) 0 mg/dL 05/06/23 10:12 Urine Ketones (Auto) Negative 05/06/23 10:12 Urine Blood (Auto) 0 Suhail/uL 05/06/23 10:12 Urine Nitrite (Auto) Negative 05/06/23 10:12 Urine Bilirubin (Auto) 0 mg/dL 05/06/23 10:12 Urine Urobilinogen (Auto) 0.2 mg/dL 05/06/23 10:12 Leukocyte Esterase (Auto) 15 Donny/uL 05/06/23 10:12 Assessment & Plan Assessment & Plan (1) Urinary leakage: Code(s): R32 - Unspecified urinary incontinence (2) Stress incontinence: Code(s): N39.3 - Stress incontinence (female) (male) Plan In office urinalysis results reviewed with the patient today; as noted above. PVR 0 mL. Discussed at length potential causes of stress incontinence and urinary leakage as well as further treatment options. Will refer to pelvic floor therapy for further assessment evaluation. Will obtain retroperitoneal ultrasound for further assessment evaluation. Discussed bladder triggers/irritants. Follow-up in 3 months with imaging to be completed prior; or sooner with any issues, concerns, and or questions. Orders: Orders US retroperitoneal comp Today N39.3 - Stress incontinence (female) (male), R32 - Unspecified urinary incontinence AMB Urinalysis Automated Today Z13.9 - Encounter for screening, unspecified AMB Post Void Residual by ultrasound Today Z13.9 - Encounter for screening, unspecified Referrals Pelvic [facility] Referral N39.3 - Stress incontinence (female) (male), R32 - Unspecified urinary incontinence Coding Level of Care Code New Pt Level 3 (53108) Diagnoses Urinary leakage R32 Stress incontinence N39.3 CPT Codes Post Residual Void - PVR CPT Code: 58693-Vjiz Void Residual by ultrasound ([id number])
== END 2023-05-06 10:40 | disposition home or self-care (01) ==
PROVIDERS: PCP Internal Medicine Medical Oncology; Visit Provider Nurse Practitioner Family
DX: N39.3 Stress incontinence (female) (male) (principal); Z13.9 Encounter for screening, unspecified
CPT/HCPCS: 99203

== ENCOUNTER → 2023-05-06 09:48 | Outpatient (BNVA) | payer OTHER, SELFPAY | PROVIDERS: PCP Internal Medicine Medical Oncology; Visit Provider Nurse Practitioner Family | DX: N39.3 Stress incontinence (female) (male) (principal) | CPT/HCPCS: 51798; 81003; 99202 ==

== ENCOUNTER 2023-05-30 10:39 | Outpatient (REF) | payer OTHER, SELFPAY | END 2023-05-30 10:40 | disposition home or self-care (01) | LOC: HO.MAMMO 10:39 | PROVIDERS: PCP Internal Medicine Medical Oncology; Visit Provider Internal Medicine Medical Oncology | DX: Z12.31 Encounter for screening mammogram for malignant neoplasm of breast (principal) | CPT/HCPCS: 77063; 77067 ==

== ENCOUNTER → 2023-05-30 11:00 | Outpatient (BNV) | payer OTHER, SELFPAY | PROVIDERS: PCP Internal Medicine Medical Oncology; Visit Provider Radiology Diagnostic Radiology | DX: Z12.31 Encounter for screening mammogram for malignant neoplasm of breast (principal) | CPT/HCPCS: 77063; 77067 ==

== ENCOUNTER 2023-08-20 15:02 | Outpatient (REF) | payer OTHER, SELFPAY ==
[2023-08-20 15:20] LABS: MANUAL DIFF FLAG NO
[2023-08-20 15:37] LABS: Basophils Absolute Auto 0.1 X10*3/uL (0.0-0.2); Basophils Percent Auto 0.8 % (0-2); Eosinophils Absolute Auto 0.2 X10*3/uL (0.0-0.4); Eosinophils Percent Auto 1.9 % (0-4); Hemoglobin 10.5 g/dl (12.0-16.0); Imm Gran Abs Auto 0.01 X10*3/uL (0.00-0.03); Imm Gran Pct Auto 0.1 % (0.0-0.4); Lymphocytes Absolute Auto 3.2 X10*3/uL (1.2-4.9); Lymphocytes Percent Auto 37.9 % (20-40); Mean Corpuscular HGB Conc 31.8 g/dl (31.0-35.0); Mean Corpuscular Hemoglobin 26.9 pg (27.0-33.0); Mean Corpuscular Volume 84.4 fL (80.0-98.0); Mean Platelet Volume 10.8 fL (9.4-12.3); Monocytes Absolute Auto 0.6 X10*3/uL (0.1-1.2); Neutrophils Absolute Auto 4.4 x10*3/uL (2.0-8.3); Neutrophils Percent Auto 52.3 % (45-73); Platelet Count 427 X10*3/uL (160-400); Red Blood Count 3.91 X10*6/uL (4.20-5.50); Red Cell Distribution Width 16.6 % (11.0-16.0); White Blood Count 8.4 X10*3/uL (4.8-10.8)
[2023-08-20 16:07] LABS: Cholesterol 186 mg/dL (<200); HDL Cholesterol 44 mg/dL (>40); LDL Cholesterol Calculated 118 mg/dL (<100); Triglycerides 121 mg/dL (<150)
[2023-08-20 16:21] LABS: Free T4 (Free Thyroxine) 0.87 ng/dL (0.71-1.85); Thyroid Stimulating Hormone 0.54 uIU/mL (0.32-4.0)
== END 2023-08-20 15:03 | disposition home or self-care (01) ==
LOC: HO.LAB 15:02
PROVIDERS: PCP Internal Medicine Medical Oncology; Visit Provider Internal Medicine Medical Oncology
DX: E66.3 Overweight (principal)
CPT/HCPCS: 36415; 80061; 84439; 84443; 85025

== ENCOUNTER 2023-09-07 17:15 | Emergency (ER) | payer OTHER, SELFPAY ==
[2023-09-07 17:45] VITALS: BP 148/70; PULSE 62; RESP 16; TEMP 36.3; O2SAT 96; BMI 30.3
--- NOTE | 2023-09-07 17:45 | ED_ITS ---
HPI - Ear Problem General Chief complaint: Ear Problems Stated complaint: left ear pain Time Seen by Provider: 09/07/23 17:44 Source: patient Mode of arrival: ambulatory Limitations: no limitations History of Present Illness ED Provider: Cha Licona PA-C HPI Narrative: 42 yo female presenting for evaluation of left ear pain and loss of hearing in the left ear. She reports new onset pain today and has had decreased hearing for the last several days. She has been using haky-ofk-lktzcfr Debrox drops with no relief. Her mother tried to irrigate the ear out for her but it did not improve her symptoms. She denies any drainage from the ear, no recent swimming. No fever or chills. No URI symptoms. No tinnitus. MD Complaint: ear pain and decreased hearing Location: left ear Duration: constant Severity: severe Relieving factors: nothing Exacerbating factors: chewing, position of head and palpation Discharge from ear: no Associated symptoms ear: decreased hearing Treatment prior to arrival: eardrops Related Data Home Medications ?Medication ?Instructions ?Recorded ?Confirmed fexofenadine-pseudoephedrine ER 1 tab PO QAM 12/01/21 12/01/21 180 mg-240 mg tablet,ext.release 24 hr (Natasha-D 24 Hour) fluoxetine 10 mg capsule 30 mg PO DAILY 12/01/21 12/01/21 omeprazole 40 mg capsule,delayed 40 mg PO DAILY 12/01/21 12/01/21 release valacyclovir 500 mg tablet 500 mg PO DAILY PRN 12/01/21 12/01/21 fluoxetine 20 mg capsule 20 mg PO DAILY 05/06/23 Allergies Allergy/AdvReac Type Severity Reaction Status Date / Time Seasonal Allergies Allergy Runny Nose Verified 09/07/23 17:45 Review of Systems Review of Systems: Yes all other systems are reviewed and are negative [facility] Family History Family History Mother TIA (transient ischemic attack) Social History Social History Household Members: None Unable to assess alcohol history related to: Unknown Alcohol intake: never Patient Tobacco Use Status: Former Tobacco user Physical Exam Vital Signs: Vital Signs: Last Vital Signs Temp 97.8 F 09/07/23 19:49 Pulse 66 09/07/23 19:49 Resp 18 09/07/23 19:49 BP 150/72 H 09/07/23 19:49 Pulse Ox 97 09/07/23 19:49 O2 Del Method Room Air 09/07/23 19:49 BMI result Body Mass Index 30.3 Appearance: Alert. Oriented X3. No acute distress. HEENT: normal external inspection. Right external auditory canal with partial obstruction with cerumen, visible TM is normal in appearance without bulging or erythema. Left external auditory canal is completely impacted with dark cerumen, unable to visualize the tympanic membrane. Normal inspection of the left mastoid without any tenderness. CVS: Normal heart rate and rhythm. Pulses normal. Respiratory: No respiratory distress. Speaking in complete sentences Skin: Skin warm and dry. Normal skin color. Normal skin turgor. No rashes. Extremities: Normal inspection x4, no joint swelling Neuro: Oriented X 3. Grossly normal, nonfocal Medications Administered Discontinued Medications Generic Name Dose Route Start Last Admin Trade Name Freq PRN Reason Stop Dose Admin Docusate Sodium 100 mg 09/07/23 17:47 09/07/23 19:48 Docusate Sodium 100 Mg/10 Ml Liquid PO 09/07/23 17:48 100 mg ONCE ONE Administration Procedures Ear Wax Removal Left Ear: Cerumenolytic Used: Colace Results: Re-examined: cerumen removed completely TM Examination: TM(s) intact, normal appearance Ear Canal Exam: atraumatic Patient Tolerated Procedure: well and no complications Complications: no problems Medical Decision Making Medical Decision Making MDM Narrative: 42-year-old female presents to the ER for evaluation of decreased hearing on the left ear, and left ear pain. Exam and clinical presentation are consistent with cerumen impaction. Cerumen was able to be completely removed from the ear canal without any evidence of tympanic membrane perforation or acute infection. Patient counseled. Stable for discharge home Differential Diagnosis Differential Diagnoses: The differential diagnosis associated with the presentation includes Cerumen impaction, otitis media, otitis externa, Meniere's disease External Record Review External record reviewed: Prior outpatient labs Prescription Management I considered prescription management with: Pain Medication Critical Care Time Critical Care Time Critical Care Time: No Discharge Plan Discharge Clinical Impression: Bilateral impacted cerumen Patient Disposition: Home, Self-Care Instructions: Carbamide Peroxide (Into the ear) Additional Instructions: Do not use insertable ear plugs while at work, recommend out a noise cancelling headphones if needed. Use Debrox [id number] ear drops to soften the earwax. Do not use Q-tips. If you develop new or worsening symptoms call 911 or come back to the ER for further evaluation. Prescriptions: No Action omeprazole 40 mg capsule,delayed release(DR/EC) 40 mg PO DAILY fexofenadine-pseudoephedrine [Natasha-D 24 Hour] 180-240 mg tablet extended release 24 hr 1 tab PO QAM fluoxetine 10 mg capsule 30 mg PO DAILY valacyclovir 500 mg tablet 500 mg PO DAILY PRN fluoxetine 20 mg capsule 20 mg PO DAILY Stand Alone Forms: Work/School Release Print Language: Belizean
[2023-09-07] MEDS: Docusate Sodium 100 MG/10 ML LIQUID PO (19:48)
[2023-09-07 19:49] VITALS: BP 150/72; PULSE 66; RESP 18; TEMP 36.6; O2SAT 97
[2023-09-07 20:32] VITALS: BP 150/72; PULSE 66; RESP 18; TEMP 36.6; O2SAT 97
== END 2023-09-07 20:33 | disposition home or self-care (01) ==
PROVIDERS: Emergency Provider Student in an Organized Health Care Education/Training Program; PCP Internal Medicine Medical Oncology
DX: H61.23 Impacted cerumen, bilateral (principal); H92.02 Otalgia, left ear
CPT/HCPCS: 69209; 99283; 99284

== ENCOUNTER 2024-05-14 08:48 | Emergency (ER) | payer MEDICAID, SELFPAY ==
[2024-05-14 09:12] VITALS: BP 109/69; PULSE 90; RESP 18; TEMP 38.3; O2SAT 97; BMI 18.4
[2024-05-14 09:37] LABS: IDNOW Serial# 08D9AD1C; Strep A Nucleic Acid Negative (Negative)
[2024-05-14 10:10] LABS: Influenza A PCR NEGATIVE (Negative); Influenza B PCR POSITIVE (Negative); Resp Syncy Virus RNA Qual PCR NEGATIVE (Negative); SARS COV2 PCR INHOUSE NEGATIVE (Negative)
--- NOTE | 2024-05-14 11:06 | ED.GENADULT ---
HPI - General Adult General Chief complaint: Upper Respiratory Symptoms Stated complaint: Body aches, dizziness, congestion Time Seen by Provider: 05/14/24 11:06 Source: patient Mode of arrival: ambulatory Limitations: no limitations History of Present Illness ED Provider: Beth Cyr PA-C HPI narrative: Patient is a 43 year old assigned female at with no reported medical history presenting to the emergency department today with body aches, cough, congestion, and sore throat. Patient states that over the last 5 days she has felt generally unwell with body aches, congestion, sore throat, and a cough. Patient denies any dizziness, lightheadedness, abdominal pain, nausea, vomiting, fever, chills, blurry vision, double vision, loss of vision, chest pain, difficulty breathing, shortness of breath, back pain, night sweats, pain with urination, increased urinary frequency, increased urinary urgency, blood in her urine or stool, syncope or a near syncopal episode, recent trauma or falls, bowel incontinence, bladder incontinence, or any other complaints at this time. Onset (ago): day(s) (5) Relieving factors: none Exacerbating factors: none Associated symptoms: cough Treatments prior to arrival: none Related Data Home Medications ?Medication ?Instructions ?Recorded ?Confirmed fexofenadine-pseudoephedrine ER 1 tab PO QAM 12/01/21 12/01/21 180 mg-240 mg tablet,ext.release 24 hr (Natasha-D 24 Hour) fluoxetine 10 mg capsule 30 mg PO DAILY 12/01/21 12/01/21 omeprazole 40 mg capsule,delayed 40 mg PO DAILY 12/01/21 12/01/21 release valacyclovir 500 mg tablet 500 mg PO DAILY PRN 12/01/21 12/01/21 fluoxetine 20 mg capsule 20 mg PO DAILY 05/06/23 Allergies Allergy/AdvReac Type Severity Reaction Status Date / Time Seasonal Allergies Allergy Runny Nose Verified 05/14/24 09:15 Review of Systems Constitutional: Constitutional: Reports no additional constitutional complaints, Reports body ache(s), Denies chills, Denies fever(s) and Denies night sweats Eyes: Eyes: Reports no additional eye complaints, Denies blurry vision, Denies change in vision, Denies diplopia, Denies eye discharge, Denies loss of vision and Denies eye pain ENT: Denies dizziness, Reports nasal congestion and Reports sore throat Cardiovascular: Cardiovascular: Reports no additional cardiovascular complaints, Denies chest pain, Denies lightheadedness, Denies Loss of Consciousness and Denies dyspnea Respiratory: Respiratory: Reports no additional respiratory complaints, Reports cough and Denies dyspnea Gastrointestinal: Gastrointestinal: Reports no additional gastrointestinal complaints, Denies abdominal pain, Denies melena, Denies hematochezia, Denies change in bowel habits and Denies change in stool character Genitourinary: Genitourinary: Denies hematuria, Denies urinary frequency, Denies dysuria, Denies urinary incontinence, Denies urinary hesitancy and Denies urinary urgency Musculoskeletal: Musculoskeletal: Reports no additional musculoskeletal complaints, Denies numbness and Denies tingling Neurologic: Denies dizziness, Denies loss of vision, Denies numbness and Denies tingling Psychiatric: Psychiatric: Reports no additional psychiatric complaints Endocrine: Endocrine: Reports no additional endocrine complaints Hematologic/Lymphatic: Hematologic/Lymphatic: Reports no additional hematologic/lymphatic complaints Allergic/Immunologic: Allergic/Immunologic: Reports no additional allergic/immunologic complaints PMFSH Past Medical History Attestation statement: The following information was validated with the patient. Source: old records reviewed and nursing notes reviewed Family History Family History Mother TIA (transient ischemic attack) Social History Social History Household Members: None Unable to assess alcohol history related to: Unknown Alcohol intake: never Patient Tobacco Use Status: Former Tobacco user Physical Exam ED Vital Signs: Vital Signs - 24 hr 05/14/24 09:12 Temperature 100.9 F H Pulse Rate 90 Respiratory Rate 18 Blood Pressure 109/69 Pulse Oximetry 97 Oxygen Delivery Method Room Air BMI result Body Mass Index 18.4 Const General: cooperative, no acute distress, alert and awake Nutritional Appearance: well nourished Orientation/consciousness: patient oriented x3 Limitations: no limitations HENMT Head: Yes normal to inspection and Yes atraumatic Ears: hearing grossly normal bilaterally and external ears normal General nose exam: Normal external nose present, no nasal discharge noted and no epistaxis Face and sinus: Yes normal facial exam, No abrasion and No laceration Mouth: Normal oral and palatal mucosa present, no drooling and no muffled voice Eyes General: appearance normal, both eyes and all related structures Periorbital: periorbital findings normal Eyelids: Yes eyelids normal Conjunctivae: conjunctivae normal Pupils: Equal, round and reactive pupils present EOM: EOMs intact bilaterally Neck Neck: Yes normal visual inspection, Yes full ROM and Yes no lymphadenopathy Chest Chest palpation & inspection: normal inspection of the chest Resp Effort & Inspection: normal respiratory effort and able to speak in complete sentences GI Inspection: Yes normal to inspection Neuro General: patient oriented x3, moves all extremities and CN's II-XI intact bilaterally Cranial nerves: Yes Equal, round and reactive pupils present Cognition (Neuro): normal cognition Extrem General: Yes normal to inspection, Yes full ROM and Yes capillary refill normal Psych Appearance: grossly normal Mental Status: mental status grossly normal Affect: normal affect Attitude: cooperative Thought process: Normal thought process present Thought content: Normal thought content present Insight: Good insight present (Psych) Medical Decision Making Medical Decision Making MDM Narrative: Patient is a 43 year old assigned female at with no reported medical history presenting to the emergency department today with body aches, cough, congestion, and sore throat. Patient's physical exam was unremarkable. Patient's influenza swab was positive. I explained my physical exam findings as well as all test results to the patient. I answered all questions asked by the patient. I stressed the importance of the patient taking her medication as directed (either prescribed or as the over the counter packaging recommends). I stressed the importance of the patient following up with her primary care provider. I stressed the importance of the patient returning to the emergency department immediately if her symptoms were to worsen or if she were to develop any dizziness, shortness of breath, difficulty breathing, chest pain, blurry vision, loss of vision, nausea, vomiting, abdominal pain, fever, chills, back pain, or any other complaints. Patient verbalized agreement and understanding with this treatment plan and discharge. Differential Diagnosis Differential Diagnoses: The differential diagnosis associated with the presentation includes Influenza RSV COVID-19 Admission/Observation Consideration of admission/observation: Escalation of care including admission/observation considered Patient would have been admitted to the hospital had her work up had any findings where hospital admission was appropriate and her clinical presentation warranted hospital admission. Lab Data [facility] Lab Attestation statement: I reviewed the patient's lab results. My interpretation of these results are in the [facility] Rationale portion of this note. Labs: Lab Results 05/14/24 Range/Units 09:22 Influenza Type A (PCR) NEGATIVE (Negative) Influenza Type B (PCR) POSITIVE A (Negative) RSV RNA Qual (PCR) NEGATIVE (Negative) SARS-CoV-2 RNA (RT-PCR) NEGATIVE (Negative) S. pyogenes GrpA CALLIE Negative (Negative) Discharge Plan Discharge Clinical Impression: Influenza Patient Disposition: Home, Self-Care Instructions: Influenza (DC) Additional Instructions: Please be sure to continue drinking fluids. Follow up with your primary care provider. Return to the emergency department immediately if your symptoms worsen or if you develop any dizziness, shortness of breath, difficulty breathing, chest pain, blurry vision, loss of vision, nausea, vomiting, abdominal pain, fever, chills, back pain, or any other complaints. Prescriptions: No Action omeprazole 40 mg capsule,delayed release(DR/EC) 40 mg PO DAILY fexofenadine-pseudoephedrine [Natasha-D 24 Hour] 180-240 mg tablet extended release 24 hr 1 tab PO QAM fluoxetine 10 mg capsule 30 mg PO DAILY valacyclovir 500 mg tablet 500 mg PO DAILY PRN fluoxetine 20 mg capsule 20 mg PO DAILY Referrals: Jeff Yuan MD [Primary Care Provider] - Stand Alone Forms: Work/School Release Print Language: Mongolian
[2024-05-14 11:23] VITALS: BP 109/69; PULSE 90; RESP 18; TEMP 38.3; O2SAT 97
--- OUTSIDE RECORDS SUMMARY | 2024-05-14 11:50 | XMS_ITS | Patient Health Record ---
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 Name Role Phone Jeff Yuan Primary Care Provider [phone] Allergies Allergen (clinical drug ingredient) Drug/Non Drug Allergy documented on EMR Reaction Allergy Type Onset Date Status No Known Drug Allergy Unknown Drug Allergy Active Results Component Value Reference Range Notes Lipid Panel Reviewed date:08/30/2023 03:49:41 PM Interpretation: Performing Lab:[facility], [address] [place] [phone] Notes/Report: Triglycerides 121 <150 mg/dL Desirable Triglyceride: less than 150 mg/dL Borderline High Triglyceride 150-199 mg/dL High Triglyceride: 200-499 mg/dL Very High Triglyceride: greater than or equal to 5OO mg/dL Cholesterol 186 <200 mg/dL Desirable Cholesterol: less than 200 mg/dL Borderline High Cholesterol: 200-239 mg/dL High Cholesterol: greater than 239 mg/dL LDL Cholesterol Calculated 118 <100 mg/dL Desirable LDL: less than 100 mg/dL Near Optimal/Above Optimal LDL: 110-129 mg/dL Borderline High LDL: 130-159 mg/dL High LDL: 160-189 mg/dL Very High LDL: greater than or equal to 190 mg/dL HDL Cholesterol 44 >40 mg/dL Desirable HDL: greater than 40 mg/dL Note: This HDL assay may give artificially low results in patients with liver disease. Free T4 (Free Thyroxine) Reviewed date:08/30/2023 03:49:41 PM Interpretation: Performing Lab:[facility], [address] [place] [phone] Notes/Report: Free T4 (Free Thyroxine) 0.87 0.71-1.85 ng/dL MM tomosynthesis screening B I Reviewed date:08/04/2023 02:53:18 PM Interpretation: Performing Lab: Notes/Report: [address] [place] [address] Mammography Report Signed Patient: Lucy Israel MR#: [id number] : 1980 Acct:[id number] Age/Sex: 42 / F ADM Date: 05/30/23 Loc: HO.MAMMO Attending Dr: Jeff Yuan MD Ordering Physician: Jeff Yuan MD Results: 1Negativ e Date of Service: 05/30/23 Follow Up: 1 Year From Orig ina Mammogram Procedure(s): MM tomosynthesis screening BI Accession Number(s): [id number] cc: Jeff Yuan MD EXAMINATION: MM SCREENING DIGITAL BREAST TOMOSYNTHESIS, BILATERAL CLINICAL INFORMATION: Screening. Asymptomatic. COMPARISON: Mammography: This study is compared with prior exams dating back to 2019. TECHNIQUE: Digital breast tomosynthesis is performed in both the craniocaudal and mediolateral oblique views along with computer-aided detection (CAD). Synthesized 2D images are generated from the tomosynthesis. FINDINGS: There are scattered areas of fibroglandular density (ACR BI-RADS breast composition Category b). There are no significant masses, abnormal calcifications, or other abnormalities. MM/MM tomosynthesis screening BI IMPRESSION: No mammographic evidence of malignancy. ASSESSMENT: BI-RADS BI-RADS 1 - Negative RECOMMENDATION: Routine annual mammography screening. 1 year F/U This examination should not preclude the clinical evaluation of a suspicious palpable abnormality. This patient's information was entered into a reminder system with a target due date for their next mammogram. Dictated By: Farrah Rowland MD Signed By: <Electronically signed by Farrah Rowland MD in OV> 06/16/23 1759 DD/ 1108 TD/TT: Capacitor Assembler: [address] [place] [address] Mammography Report Signed Patient: Daniel Israel MR#: [id number] : 1980 Acct:[id number] Age/Sex: 42 / F ADM Date: 05/30/23 Loc: HO.MAMMO Attending Dr: Jeff Yuan MD Ordering Physician: Jeff Yuan MD Results: 1Negativ e Date of Service: 05/30/23 Follow Up: 1 Year From Orig ina Mammogram Procedure(s): MM tomosynthesis screening BI Accession Number(s): [id number] cc: Jeff Yuan MD EXAMINATION: MM SCREENING DIGITAL BREAST TOMOSYNTHESIS, BILATERAL CLINICAL INFORMATION: Screening. Asymptomatic. COMPARISON: Mammography: This st udy is compared with prior exams dating back to 2019. TECHNIQUE: Digital breast tomosynthesis is performed in both the craniocaudal and mediolateral oblique views along with computer-aided detection (CAD). Synthesized 2D image s are generated from the tomosynthesis. FINDINGS: There are scattered areas of fibroglandular density (ACR BI-RADS breast composition Category b). There are no significant masses, abnormal calcifications, or other abnormalities. MM/MM tomosynthesis screening BI IMPRESSION: No mammographic evidence of malignancy. ASSESSMENT: BI-RADS BI-RADS 1 - Negative RECOMMENDATION: Routine annual mammography screening. 1 year F/U This examination marianna uld not preclude the clinical evaluation of a suspicious palpable abnormality. This patient's information was entered into a reminder system with a target due date for their next mammogram. Dictated By: Farrah Rowland MD Signed By: <Electronically signed by Farrah Rowland MD in OV> 06/16/23 1759 DD/ 1108 TD/TT: Capacitor Assembler: Complete Blood Count Auto Di ff Reviewed date:08/30/2023 03:49:41 PM Interpretation: Performing Lab:[facility], [address] [place] [phone] Notes/Report: White Blood Count 8.4 4.8-10.8 X10*3/uL Red Blood Count 3.91 4.20-5.50 X10*6/uL Hemoglobin 10.5 12.0-16.0 g/dl Hematocrit 33.0 37.0-47.0 % Mean Corpuscular Volume 84.4 80.0-98.0 fL Mean Corpuscular Hemoglobin 26.9 27.0-33.0 pg Mean Corpuscular HGB Conc 31.8 31.0-35.0 g/dl Red Cell Distribution Width 16.6 11.0-16.0 % Platelet Count 427 160-400 X10*3/uL Mean Platelet Volume 10.8 9.4-12.3 fL Neutrophils Percent Auto 52.3 45-73 % Imm Gran Pct Auto 0.1 0.0-0.4 % Lymphocytes Percent Auto 37.9 20-40 % Monocytes Percent Auto 7.0 2-11 % Eosinophils Percent Auto 1.9 0-4 % Basophils Percent Auto 0.8 0-2 % NRBC Pct Auto 0.0 0.0-0.2 /100WBC Neutrophils Absolute Auto 4.4 2.0-8.3 x10*3/uL Imm Gran Abs Auto 0.01 0.00-0.03 X10*3/uL Lymphocytes Absolute Auto 3.2 1.2-4.9 X10*3/uL Monocytes Absolute Auto 0.6 0.1-1.2 X10*3/uL Eosinophils Absolute Auto 0.2 0.0-0.4 X10*3/uL Basophils Absolute Auto 0.1 0.0-0.2 X10*3/uL NRBC Abs Auto 0.000 0.0-0.012 X10*3/uL Thyroid Stimulating Hormone Reviewed date:08/30/2023 03:49:41 PM Interpretation: Performing Lab:[address] [phone] Notes/Report: Thyroid Stimulating Hormone 0.54 0.32-4.0 uIU/mL TSH 3rd Generation ([facility]) SARS-CoV2/FLU/RSV (Not yet r eviewed by provider) Interpretation: Performing Lab:[facility], [address] [place] [phone] Notes/Report: Influenza A PCR NEGATIVE Negative Influenza B PCR POSITIVE Negative Resp Syncy Virus RNA Qual PCR NEGATIVE Negative SARS COV2 PCR INHOUSE NEGATIVE Negative All test results must be correlated with clinical findings. Negative results do not preclude SARS-CoV2, influenza A virus, influenza B virus and/or RSV infection and should not be used as the sole basis for treatment or other patient management decisions. Negative results must be combined with clinical observations, patient history, and epidemiological information. This test has not been evaluated for monitoring treatment of infection. This test has been authorized by the FDA under an Emergency Use Authorization (EUA) for use by authorized laboratories. Testing performed on the [employer] GeneXpert utilizing real-time RT-PCR. All SARS CoV2 and positive influenza A/B results are reported to [facility]. Reason For Referral No Information Medications Medication SIG (Take, Route, Frequency, Duration) Notes Start Date End Date Status FLUoxetine HCl 20 MG Take 1 capsule by mouth once daily Active Cyclobenzaprine HCl 10 MG as directed Or ally one tablet po q 8 hours prn muscle spasm 08/08/2021 Active Melatonin 10 MG as directed Orally Active ProAir HFA 108 (90 Base) MCG/ACT 1 puff as needed Inhalation every 4 hrs prn 04/21/2019 Active Omeprazole 20 MG 1 capsule 30 minutes before morning meal Orally Once a day Active COVID-19 At Home Antigen Test - as directed In Vitro as needed for 30 days 05/13/2024 05/08/2025 Active valACYclovir HCl 500 MG Take 1 tablet by mouth once daily Active Immunizations Vaccine Route Administration Date Status Comme nts Tdap Unknown 09/12/2016 Administered COVID PFIZER Unknown 09/01/2020 Administered COVID PFIZER Unknown 09/22/2020 Administered Social History Tobacco Use: Social History Observation Description Date Details (start date - stop date) Former Smoker NA - NA Sex Assigned At : Social History Observation Description Sex Assigned At Female Alcohol Screen Question Answer Notes Did you have a drink containing alcohol in the p ast year? No Points 0 Interpretation Negative Tobacco Control (Standard) Question Answer Notes Tobacco use: Former smoker How long has it been since you last smoked? 5-10 years Additional Findings: Tobacco non-user Ex-cigaret te smoker Problems Problem Type SNOMED Code ICD Code Onset Dates Problem Status W/U Status Risk Notes Problem 4935329 Former smoker (Z87.891) Active confirmed She is well motivated not to smoke. We discussed a strategy to prevent relapse from time to stress or illness. Problem 471257147116021 Obesity (BMI 30.0-34.9) (E66.9) Active confirmed Her body mass index is 30. We discussed diet and nutrition. We formulated a plan to lose weight at a rate of one half of a pound per week. Problem 272347842 GERD without esophagitis (K21.9) Active confirmed Her esophageal reflux symptoms are well-controlled with current medication. Problem 534721531 Obesity (BMI 30-39.9) (E66.9) Active confirmed She has gained 6 pounds and her body mass index is 30. We have discussed diet and nutrition. We made a plan to lose weight at a rate of one half of a pound per week through a diet restricted in fat calories and sodium. Problem 04418904 Cervical radiculopathy (M54.12) Active confirmed The pain has diminished since her last visit. She is being careful to do no heavy lifting or undue exertion. She will call for an appointment if the pain returns. Problem 747105209 Mild intermittent asthma without complication (J45.20) Active confirmed She was not wheezing today. She reports very little difficulty during the heavy pollen season earlier this spring. 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 The discomfort described under her sternum sounded more gastrointestinal than cardiac. She will double the omeprazole from once a day to twice a day. She was urged to keep her appointments with her mail sorter and delivery in have periodic upper endoscopies. Problem Urinary incontinence (135121886) Incontinence of urine in female (R32) Active confirmed Problem 513011906829641 Myopia of both eyes (H52.13) Active confirmed Problem 27722725 Herpes simplex infection of genitourinary system (A60.00) Active confirmed She has medicat ion for genital herpes which I have refilled. She will take valacyclovir daily. If she does not take this medication she has not break about once a week she says. She is not at this time. Problem 57030839 Recurrent major depressive disorder, in partial remission (F33.41) Active confirmed She will contin ue with her mental health providers. She will continue on the current dose of Prozac. She will be seen frequently. She reports slow improvement with medication. She is not feeling suicidal. 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 The anatomy is unremarkable on examination. If this does not resolve in the near future she will be referred to ENT. She denies vertigo or tinnitus. Vital Signs Heart Rate 65 /min 12/30/2023 Temperature 98.0 degrees Fahrenheit 12/30/2023 Blood pressure diastolic 60 mm Hg 12/30/2023 Height 69 in 01/07/2024 Blood pressure systolic 136 mm Hg 12/30/2023 Weight 211 lbs 01/07/2024 BMI 31.16 kg/m2 01/07/2024 Encounters Encounter Location Date Provider Diagnosis Jeff Yuan III, MD [address] [place] [address] [place] [address] 08/19/2023 Jeff Yuan Metz's esophageal ulceration K22.10 ; Mild intermittent asthma without complication J45.20 ; GERD without esophagitis K21.9 ; Sleep apnea in adult G47.30 ; Former smoker Z87.891 ; Cervical radiculopathy M54.12 ; Recurrent major depressive disorder, in partial remission F33.41 ; Obesity (BMI 30.0-34.9) E66.9 and Abnormal smell R43.1 Jeff Yuan III, MD [address] [place] [address] [place] [address] 08/30/2023 Jeff Yuan Metz's esophageal ulceration K22.10 ; Mild intermittent asthma without complication J45.20 ; GERD without esophagitis K21.9 ; Recurrent major depressive disorder, in partial remission F33.41 ; Sleep apnea in adult G47.30 ; Former smoker Z87.891 ; Cervical radiculopathy M54.12 and Obesity (BMI 30.0-34.9) E66.9 Jeff Yuan III, MD [address] [place] [address] [place] [address] 12/30/2023 Jeff Yuan Neck pain M54.2 ; 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 with unrestricted hearing of left ear H91.21 ; GERD without esophagitis K21.9 ; Mild intermittent asthma without complication J45.20 ; Recurrent major depressive disorder, in partial remission F33.41 ; Former smoker Z87.891 and Obesity (BMI 30-39.9) E66.9 Jeff Yuan III, MD [address] [place] [address] [place] [address] 01/07/2024 Jeff Yuan Cervical radiculopat hy M54.12 ; 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 with unrestricted hearing of left ear H91.21 ; Obesity (BMI 30-39.9) E66.9 ; Recurrent major depressive disorder, in partial remission F33.41 ; Mild intermittent asthma without complication J45.20 ; Metz's esophageal ulceration K22.10 ; GERD without esophagitis K21.9 and Former smoker Z87.891 Jeff Yuan III, MD [address] [place] [address] [place] [address] 05/13/2024 Jeff Yuan Assessments Encounter Date Diagnosis (ICD Code) Assessment Notes Treatment Notes Treatment Clinical Notes 08/19/2023 Mild intermittent asthma without complication (ICD-10 - J45.20) She was not wheezing today. She reports very little difficulty during the heavy pollen season earlier this spring. 08/19/2023 Metz's esophageal ulceration (ICD-10 - K22.10) She is known to have parents esophagus. The discomfort described under her sternum sounded more gastrointestinal than cardiac. She will double the omeprazole from once a day to twice a day. She was urged to keep her appointments with her mail sorter and delivery in have periodic upper endoscopies. 08/30/2023 Mild intermittent asthma without complication (ICD-10 - J45.20) She was not wheezing today. She reports very little difficulty during the heavy pollen season earlier this spring. 08/30/2023 Metz's esophageal ulceration (ICD-10 - K22.10) She is known to have parents esophagus. The discomfort described under her sternum sounded more gastrointestinal than cardiac. She will double the omeprazole from once a day to twice a day. She was urged to keep her appointments with her mail sorter and delivery in have periodic upper endoscopies. 12/30/2023 Neck pain (ICD-10 - M54.2) This appears to be muscle strain, possibly nerve impingement. There will be treated with the rest observation and ibuprofen. 12/30/2023 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 with unrestricted hearing of left ear (ICD-10 - H91.21) She rreports mild hearing loss on the right ear. The anatomy is unremarkable on examination. If this does not resolve in the near future she will be referred to ENT. She denies vertigo or tinnitus. 01/07/2024 Cervical radiculopathy (ICD-10 - M54.12) The pain has diminished since her last visit. She is being careful to do no heavy lifting or undue exertion. She will call for an appointment if the pain returns. 01/07/2024 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 with unrestricted hearing of left ear (ICD-10 - H91.21) She rreports mild hearing loss on the right ear. The anatomy is unremarkable on examination. If this does not resolve in the near future she will be referred to ENT. She denies vertigo or tinnitus. 08/19/2023 GERD without esophagitis (ICD-10 - K21.9) Her esophageal reflux symptoms are well-controlled with current medication. 08/30/2023 GERD without esophagitis (ICD-10 - K21.9) Her esophageal reflux symptoms are well-controlled with current medication. 12/30/2023 GERD without esophagitis (ICD-10 - K21.9) Her esophageal reflux symptoms are well-controlled with current medication. 01/07/2024 Obesity (BMI 30-39.9) (ICD-10 - E66.9) She has gained 6 pounds and her body mass index is 30. We have discussed diet and nutrition. We made a plan to lose weight at a rate of one half of a pound per week through a diet restricted in fat calories and sodium. 08/19/2023 Sleep apnea in adult (ICD-10 - G47.30) The neurologist at the sleep apnea facility told her she did not need a CPAP machine. 08/30/2023 Recurrent major depressive disorder, in partial remission (ICD-10 - F33.41) She will continue with her mental health providers. She will continue on the current dose of Prozac. She will be seen frequently. She reports slow improvement with medication. She is not feeling suicidal. 12/30/2023 Mild intermittent asthma without complication (ICD-10 - J45.20) She was not wheezing today. She reports very little difficulty during the heavy pollen season earlier this spring. 01/07/2024 Recurrent major depressive disorder, in partial remission (ICD-10 - F33.41) She will continue with her mental health providers. She will continue on the current dose of Prozac. She will be seen frequently. She reports slow improvement with medication. She is not feeling suicidal. 08/19/2023 Former smoker (ICD-10 - Z87.891) She is well motivated not to smoke. We discussed a strategy to prevent relapse from time to stress or illness. 08/30/2023 Sleep apnea in adult (ICD-10 - G47.30) The neurologist at the sleep apnea facility told her she did not need a CPAP machine. 12/30/2023 Recurrent major depressive disorder, in partial remission (ICD-10 - F33.41) She will continue with her mental health providers. She will continue on the current dose of Prozac. She will be seen frequently. She reports slow improvement with medication. She is not feeling suicidal. 01/07/2024 Mild intermittent asthma without complication (ICD-10 - J45.20) She was not wheezing today. She reports very little difficulty during the heavy pollen season earlier this spring. 08/19/2023 Cervical radiculopathy (ICD-10 - M54.12) The pain has diminished since her last visit. She is being careful to do no heavy lifting or undue exertion. She will call for an appointment if the pain returns. 08/30/2023 Former smoker (ICD-10 - Z87.891) She is well motivated not to smoke. We discussed a strategy to prevent relapse from time to stress or illness. 12/30/2023 Former smoker (ICD-10 - Z87.891) She is well motivated not to smoke. We discussed a strategy to prevent relapse from time to stress or illness. 01/07/2024 Metz's esophageal ulceration (ICD-10 - K22.10) She is known to have parents esophagus. The discomfort described under her sternum sounded more gastrointestinal than cardiac. She will double the omeprazole from once a day to twice a day. She was urged to keep her appointments with her mail sorter and delivery in have periodic upper endoscopies. 08/19/2023 Recurrent major depressive disorder, in partial remission (ICD-10 - F33.41) She will continue with her mental health providers. She will continue on the current dose of Prozac. She will be seen frequently. She reports slow improvement with medication. She is not feeling suicidal. 08/30/2023 Cervical radiculopathy (ICD-10 - M54.12) The pain has diminished since her last visit. She is being careful to do no heavy lifting or undue exertion. She will call for an appointment if the pain returns. 12/30/2023 Obesity (BMI 30-39.9) (ICD-10 - E66.9) She has gained 6 pounds and her body mass index is 30. We have discussed diet and nutrition. We made a plan to lose weight at a rate of one half of a pound per week through a diet restricted in fat calories and sodium. 01/07/2024 GERD without esophagitis (ICD-10 - K21.9) Her esophageal reflux symptoms are well-controlled with current medication. 08/19/2023 Obesity (BMI 30.0-34.9) (ICD-10 - E66.9) Her body mass index is 30. We discussed diet and nutrition. We formulated a plan to lose weight at a rate of one half of a pound per week. 08/30/2023 Obesity (BMI 30.0-34.9) (ICD-10 - E66.9) Her body mass index is 30. We discussed diet and nutrition. We formulated a plan to lose weight at a rate of one half of a pound per week. 01/07/2024 Former smoker (ICD-10 - Z87.891) She is well motivated not to smoke. We discussed a strategy to prevent relapse from time to stress or illness. 08/19/2023 Abnormal smell (ICD-10 - R43.1) She will be observed carefully to see if she might be having olfactory hallucinations, medical interactions or seizures. If this persists she will see neurology. Plan Of Treatment Pending Test Test Name Order Date PROFILE, FASTING (COMPREHENSIVE METABOLI C) 04/10/2022 PROFILE, FASTING (COMPREHENSIVE METABOLI C) 06/28/2020 PROFILE, FASTING (COMPREHENSIVE METABOLI C) 11/03/2021 PROFILE, FASTING (COMPREHENSIVE METABOLI C) 08/19/2023 PROFILE, FASTING (COMPREHENSIVE METABOLI C) 08/01/2021 PROFILE, FASTING (COMPREHENSIVE METABOLI C) 11/08/2022 PROFILE, RANDOM (COMPREHENSIVE METABOLIC ) 03/22/2023 LIPID PANEL 11/08/2022 LIPID PANEL 06/28/2020 FREE T4 (FT4) 06/28/2020 TSH (THYROID STIMULATING HORMONE) 2023 TSH (THYROID STIMULATING HORMONE) 2020 B12 11/05/2019 CBC w DIFF 08/01/2021 CBC w DIFF 11/08/2022 CBC w DIFF 06/28/2020 CBC w DIFF 04/10/2022 CBC w DIFF 03/22/2023 CBC w DIFF 11/03/2021 LYME DISEASE IgG/IgM WB 10/28/2019 XR CHEST 2 VIEW PA & LAT 03/22/2023 MAMMOGRAM DIGITAL BILATERAL SCREEN 11/03 MAMMOGRAM DIGITAL BILATERAL SCREEN 02/05 MAMMOGRAM DIGITAL BILATERAL SCREEN 08/01 MAMMOGRAM DIGITAL BILATERAL SCREEN 11/08 MAMMOGRAM DIGITAL BILATERAL SCREEN 04/17 US ABD 08/03/2020 Stress Test 06/28/2020 CBC WITH AUTO DIFF 08/19/2023 Lipid Panel 08/01/2021 Lipid Panel 04/10/2022 SARS-CoV2/FLU/RSV 05/14/2024 Next Appt Details Provider Name:Jeff Lewisrne, 06/10/2024 03:00:00 PM, [address] [place] [address] , [place], [place], [address], Insurance Providers Payer Name Payer Address Payer Phone Subscriber Number Group Number Insured Name Patient Relationship to Insured Coverage Start Date Coverage End Date [employer] [address] [address] [place] [address] [id number] Lucy Israel Self - patient is the insured MEDICAID [address] [place], [place] [id number] Self - patient is the insured Medical (General) History Medical History History ICD Code Asthma J45.909 Genital herpes A60.00 GERD (gastroesophageal reflux disease) K 21.9 Barretts esophagus obesity nearsighted, Lasik degenerative disc disease C5-6 on MRI daytime somnolence and snoring former smoker October 2020 major depressive episode wit h suicidal ideation Surgical History Surgery Date(Month/Year) No history EGD, [facility]. Marge Joseph es ophagus laser surgery both eyes 2018 Hospitalization History Reason Date(Month/Year) No history [facility] major depressi on October 2020
--- OUTSIDE RECORDS SUMMARY | 2024-05-14 11:51 | XMS_ITS ---
Author Organization Jeff Yuan III, MD Address [address] [place] [address] Care Team Providers Care Phone Specialist Name Role Phone Jeff Yuan Primary Care Provider Allergies Allergen (clinical drug ingredient) Drug/Non Drug Allergy documented on EMR Reaction Allergy Type Onset Date Status No Known Drug Allergy Unknown Drug Allergy Active REASON FOR VISIT Annual Exam, Mammogram due Medications Medication SIG (Take, Route, Frequency, Duration) Notes Start Date End Date Status FLUoxetine HCl 20 MG Take 1 capsule by m outh once daily Active Cyclobenzaprine HCl 10 MG as directed Or ally one tablet po q 8 hours prn muscle spasm 08/08/2021 Active Melatonin 10 MG as directed Orally Active Omeprazole 20 MG 1 capsule 30 minutes before morning meal Orally Once a day Active ProAir HFA 108 (90 Base) MCG/ACT 1 puff as needed Inhalation every 4 hrs prn 04/21/2019 Active valACYclovir HCl 500 MG Take 1 tablet by mouth once daily Active Social History Tobacco Use: Social History Observation Description Date Details (start date - stop date) Former Smoker NA - NA Sex Assigned At : Social History Observation Description Sex Assigned At Female Tobacco Control (Standard) Question Answer Notes Tobacco use: Former smoker How long has it been since you last smoked? 5-10 years Additional Findings: Tobacco non-user Ex-cigaret te smoker Encounters Encounter Location Date Provider Diagnosis Jeff Yuan III, MD [address] [place] [address] [address] [place] [address] 04/20/2024 Jeff Yuan Plan Of Treatment Medication Medication Name Sig Start Date Stop Date Notes FLUoxetine HCl 20 MG Take 1 capsule by m outh once daily Cyclobenzaprine HCl 10 MG as directed Or ally one tablet po q 8 hours prn muscle spasm 08/08/2021 Melatonin 10 MG as directed Orally Omeprazole 20 MG 1 capsule 30 minutes before morning meal Orally Once a day ProAir HFA 108 (90 Base) MCG/ACT 1 puff as needed Inhalation every 4 hrs prn 04/21/2019 valACYclovir HCl 500 MG Take 1 tablet by mouth once daily Next Appt Details Provider Name:Jeff Yuan, 06/10/2024 03:00:00 PM, [address] [place] [address] , [place] [address], [place], [address], Progress Notes * Felice ISRAELB:1980 (43 yo F)Acc No.[id number]:04/20/2024 Progress Notes Patient:?YANIRADaniela Provider:?Jeff Yuan MD :1980???Age:43 Y???Sex:Female D ate:04/20/2024 Address:[address] [place] [address] [id number] Subjective: * Chief Complaints: * ???1. Annual Exam. 2. Mammog beau due. * HPI: ???COVID-19 Screening:?Questions?Have you had any new onset fever, chills, cough, congestion, sore throat, shortness of breath, muscle aches??No * ROS:?General/Constitutional:?pain?only normal aches and pains.?Chills?denies.?Fatigue?admits.?Fever?denies.?ENT:?Decreased hearing?denies.?Respiratory:?Cough?denies.?Cardiovascular:?Chest pain with exertion?denies.?Dyspnea on exertion?denies.?Shortness of breath?denies.?Gastrointestinal:?Constipation?denies.?Decreased appetite?denies.?Diarrhea?denies.?Heartburn?denies.?Nausea?denies.?Rectal bleeding?denies.?Vomiting?denies.?Hematology:?bruising?denies.?petechiae?denies.?Swollen glands?none have been noted.?Genitourinary:?Frequent urination?denies.?Musculoskeletal:?Muscle aches?denies.?Painful joints?denies.?Sciatica?denies.?Weakness?denies.?Skin:?Itching?denies.?Rash?denies.?Skin lesion(s)?denies.?Neurologic:?Difficulty speaking?denies.?Dizziness?denies.?Headache?denies.?Low back pain?denies.?Psychiatric:?Depressed mood?denies.? * Medical History:?Asthma, Gen ital herpes, GERD (gastroesophageal reflux disease), Barretts esophagus, Obesity, , nearsighted, Lasik, degenerative disc disease C5-6 on MRI, Daytime somnolence and snoring, Former smoker, October 2020 major depressive episode with suicidal ideation. * Surgical History:?laser surg kayleigh both eyes 2018, EGD, [facility]. DR.Yesenia King, Barretts esophagus , , No history . * Hospitalization/Major Diagno stic Procedure:?[facility] major depression October 2020, No history . * Family History:?Father: 61 y rs, No information available, healthy and well as far as patient is.?Mother: 61 yrs, Healthy and well.? She says that her parents are healthy and well. She has no siblings. She is a 20-year-old son Jeff who is well and a 2-1/2-year-old son who is healthy and well. She is not aware of a family history of any cancer. She is not aware of a history of diabetes or cardiovascular illness. She has a personal history of mental illness. She is not aware of any other family history of mental illness or substance use disorder, or addictions. * Social History:?Tobacco Use:?Tobacco Control (Standard)?Tobacco use:?Former smoker ?How long has it been since you last smoked??5-10 years ?Additional Findings: Tobacco non-user?Ex-cigarette smoker ???She is to Jeff. She has 2 children. 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 She has no toxic exposures. She is a former smoker. She is not a [employer]. She was born in [place]. * Medications:?Taking valACYcl ovir HCl 500 MG Tablet Take 1 tablet by mouth once daily , Taking ProAir HFA 108 (90 Base) MCG/ACT Aerosol Solution 1 puff as needed Inhalation every 4 hrs prn , Taking Omeprazole 20 MG Capsule Delayed Release 1 capsule 30 minutes before morning meal Orally Once a day , Taking Cyclobenzaprine HCl 10 MG Tablet as directed Orally one tablet po q 8 hours prn muscle spasm , Taking Melatonin 10 MG Capsule as directed Orally , Taking FLUoxetine HCl 20 MG Capsule Take 1 capsule by mouth once daily , Discontinued FLUoxetine HCl 10 MG Capsule Take 1 capsule by mouth once daily , Medication List reviewed and reconciled with the patient * Allergies:?No Known Drug All ergy. Objective: * Vitals:? * Examination: ???General Examination: ?GENERAL APPEARANCE:?pleasant, well nourished, well developed, in no acute distress, calm and relaxed.?HEAD:?atraumatic, normocephalic.?EYES:?eomi, perrla, anicteric, conjugate.?EARS:?normal.?NOSE:?septum intact.?ORAL CAVITY:?normal, unremarkable.?NECK/THYROID:?no jugular venous distention, no carotid bruit, thyroid normal.?LYMPH NODES:?no enlarged lymph nodes,spleen normal.?SKIN:?no suspicious lesions, anicteric.?HEART:?no clicks, gallops, murmurs, or rubs, regular rhythm, S1, S2 normal, no s3, or vascular bruits.?LUNGS:?clear to auscultation .?BREASTS:??no masses palpable bilaterally.?ABDOMEN:?bowel sounds normal, no ascites, no organomegaly, no mass.?RECTAL EXAM:?not examined.?MUSCULOSKELETAL:?extremities unremarkable, no clubbing, cyanosis or edema.?PERIPHERAL PULSES:?normal.?NEUROLOGIC:?alert and oriented, cranial nerves 2-12 grossly intact, deep tendon reflexes 2+ symmetrical, motor strength normal upper and lower extremities, sensory exam intact.?PSYCH:?alert, oriented.? Assessment: Plan: * Treatment: * Images: * The named appointment provid er may or may not be the originator of this progress note, and it is not deemed complete until electronically signed by the appointment provider. Sign off status: Pending * Provider:?Jeff Yuan MD Date:?04/02 Generated for Sidney mcpherson/Tomas/eTransmitting on:?05/14/2024 11:51 AM EST History and Physical Notes * HPI (History of Present Illness) Category Sub-Category Detail Notes COVID-19 Screening Questions Have you had any new onset fever, chills, cough, congestion, sore throat, shortness of breath, muscle aches?: No Examination Category Sub-Category Detail Notes General Examination GENERAL APPEARANCE: pleasant , well nourished, well developed, in no acute distress, calm and relaxed HEAD: atraumatic, normocep halic EYES: eomi, perrla, anicte obdulia, conjugate EARS: normal NOSE: septum intact NECK/THYROID: no jugular venous di stention, no carotid bruit, thyroid normal HEART: no clicks, gallops, murmurs, or rubs, regular rhythm, S1, S2 normal, no s3, or vascular bruits LUNGS: clear to auscultatio n ABDOMEN: bowel sounds normal, no ascites, no organomegaly, no mass NEUROLOGIC: alert and oriented, cranial nerves 2-12 grossly intact, deep tendon reflexes 2+ symmetrical, motor strength normal upper and lower extremities, sensory exam intact SKIN: no suspicious lesion s, anicteric PERIPHERAL PULSES: normal BREASTS: no masses palpable b ilaterally MUSCULOSKELETAL: extremities unremark able, no clubbing, cyanosis or edema LYMPH NODES: no enlarged lymph no catherine,spleen normal RECTAL EXAM: not examined PSYCH: alert, oriented ORAL CAVITY: normal, unremarkable
== END 2024-05-14 11:24 | disposition home or self-care (01) ==
PROVIDERS: Emergency Provider Emergency Medicine Emergency Medical Services; PCP Internal Medicine Medical Oncology
DX: J10.1 Influenza due to other identified influenza virus with other respiratory manifestations (principal); M79.10 Myalgia, unspecified site; R42 Dizziness and giddiness; R05.9 Cough, unspecified; Z03.818 Encounter for observation for suspected exposure to other biological agents ruled out
CPT/HCPCS: 0241U; 87651; 99282; 99283

== ENCOUNTER 2024-06-04 10:50 | Outpatient (REF) | payer MEDICAID, SELFPAY ==
--- OUTSIDE RECORDS SUMMARY | 2024-06-04 13:06 | XMS_ITS | Patient Health Record ---
Author Organization Jeff Yuan III, MD Address [address] [facility] [place] [address] Care Team Providers Care Banquet Line Cook Name Role Phone Jeff Yuan Primary Care Provider [phone] Allergies Allergen (clinical drug ingredient) Drug/Non Drug Allergy documented on EMR Reaction Allergy Type Onset Date Status No Known Drug Allergy Unknown Drug Allergy Active Results Component Value Reference Range Notes Lipid Panel Reviewed date:08/30/2023 03:49:41 PM Interpretation: Performing Lab:[facility], [address] [place] [phone] Notes/Report: Triglycerides 121 <150 mg/dL Desirable Triglyceride: [...] Thyroxine) Reviewed date:08/30/2023 03:49:41 PM Interpretation: Performing Lab:[facility], [address] [place] [phone] Notes/Report: Free T4 (Free Thyroxine) 0.87 0.71-1.85 ng/dL Complete Blood Count Auto Di ff Reviewed date:08/30/2023 03:49:41 PM Interpretation: Performing Lab:[facility], [address] [place] [phone] Notes/Report: White Blood Count 8.4 4.8-10.8 X10*3/uL [...] 0.0-0.2 /100WBC Neutrophils Absolute Auto 4.4 2.0-8.3 x10*3/u L Imm Gran Abs Auto 0.01 0.00-0.03 X10*3/uL Lymphocytes Absolute Auto 3.2 1.2-4.9 X10*3/u L Monocytes Absolute Auto 0.6 0.1-1.2 X10*3/uL Eosinophils Absolute Auto 0.2 0.0-0.4 X10*3/u L Basophils Absolute Auto 0.1 0.0-0.2 X10*3/uL NRBC Abs Auto 0.000 0.0-0.012 X10*3/uL Thyroid Stimulating Hormone Reviewed date:08/30/2023 03:49:41 PM Interpretation: Performing Lab:[facility], [address] [place] [phone] Notes/Report: Thyroid Stimulating Hormone 0.54 0.32-4.0 uIU/ mL TSH 3rd Generation ([facility]) SARS-CoV2/FLU/RSV Reviewed date:05/17/2024 09:55:42 AM Interpretation: Performing Lab:[facility], [address] [place] [phone] Notes/Report: Influenza A PCR NEGATIVE Negative Influenza [...] by authorized laboratories. Testing performed on the [employer] GeneXpert utilizing real-time RT-PCR. All SARS CoV2 and positive influenza A/B results are reported to [facility]. Reason For Referral No Information Medications Medication [...] Problem Status W/U Status Risk Notes Problem 2779083 Former smoker (Z87.891) Active confirmed She is well motivated not to smoke. We discussed a strategy to prevent relapse from time to stress or illness. Problem [id number] Obesity (BMI 30.0-34.9) (E66.9) Active confirmed Her body mass index is 30. We discussed diet and nutrition. We formulated a plan to lose weight at a rate of one half of a pound per week. Problem 789767420 GERD without esophagitis (K21.9) Active confirmed Her esophageal reflux symptoms are well-controlled with current medication. Problem 343078665 Obesity (BMI 30-39.9) (E66.9) Active confirmed She has gained 6 pounds and her body mass index is 30. We have discussed diet and nutrition. We made a plan to lose weight at a rate of one half of a pound per week through a diet restricted in fat calories and sodium. Problem 48973145 Cervical radiculopathy (M54.12) Active confirmed The pain has diminished since her last visit. She is being careful to do no heavy lifting or undue exertion. She will call for an appointment if the pain returns. Problem 944417033 Mild intermittent asthma without complication (J45.20) Active confirmed She was not wheezing today. She reports very little difficulty during the heavy pollen season earlier this spring. 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 The discomfort described under her sternum sounded more gastrointestinal than cardiac. She will double the omeprazole from once a day to twice a day. 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 Problem Urinary incontinence (328992531) Incontinence of urine in female (R32) Active confirmed Problem [id number] Myopia of both eyes (H52.13) Active confirmed Problem 91327651 Herpes simplex infection of genitourinary system (A60.00) Active confirmed She has medicat ion for genital herpes which I have refilled. She will take valacyclovir daily. If she does not take this medication she has not break about once a week she says. She is not at this time. Problem 46686130 Recurrent major depressive disorder, in partial remission (F33.41) Active confirmed She will contin ue with her mental health providers. She will continue on the current dose of Prozac. She will be seen frequently. She reports slow improvement with medication. She is not feeling suicidal. 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 [...] Date Provider Diagnosis Jeff Yuan III, MD [address] [place] [address] [place] [phone] 08/19/2023 Jeff Yuan Metz's esophageal ulceration K22.10 ; Mild intermittent asthma without complication J45.20 ; GERD without esophagitis K21.9 ; Sleep apnea in adult G47.30 ; Former smoker Z87.891 ; Cervical radiculopathy M54.12 ; Recurrent major depressive disorder, in partial remission F33.41 ; Obesity (BMI 30.0-34.9) E66.9 and Abnormal smell R43.1 Jeff Yuan III, MD [address] [place] [address] [place] [phone] 08/30/2023 Jeff Yuan Metz's esophageal ulceration K22.10 ; Mild intermittent asthma without complication J45.20 ; GERD without esophagitis K21.9 ; Recurrent major depressive disorder, in partial remission F33.41 ; Sleep apnea in adult G47.30 ; Former smoker Z87.891 ; Cervical radiculopathy M54.12 and Obesity (BMI 30.0-34.9) E66.9 Jeff Yuan III, MD [address] [place] [address] [place] [address] 12/30/2023 Jeff Yuan Neck pain M54.2 ; 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 with unrestricted hearing of left ear H91.21 ; GERD without esophagitis K21.9 ; Mild intermittent asthma without complication J45.20 ; Recurrent major depressive disorder, in partial remission F33.41 ; Former smoker Z87.891 and Obesity (BMI 30-39.9) E66.9 Jeff Yuan III, MD [address] [place] [address] [place] [address] 01/07/2024 Jeff Yuan Cervical radiculopat hy M54.12 ; 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 08/19/2023 Recurrent [...] C) 11/03/2021 PROFILE, FASTING (COMPREHENSIVE METABOLI C) 08/01/2021 PROFILE, FASTING (COMPREHENSIVE METABOLI C) 08/19/2023 PROFILE, FASTING (COMPREHENSIVE METABOLI C) 11/08/2022 PROFILE, RANDOM (COMPREHENSIVE METABOLIC ) 03/22/2023 LIPID PANEL 11/08/2022 LIPID PANEL 06/28/2020 FREE T4 (FT4) 06/28/2020 TSH (THYROID STIMULATING HORMONE) 2023 TSH (THYROID STIMULATING HORMONE) 2020 B12 11/05/2019 CBC w DIFF 08/01/2021 CBC w DIFF 06/28/2020 CBC w DIFF 11/08/2022 CBC w DIFF 04/10/2022 CBC w DIFF 11/03/2021 CBC w DIFF 03/22/2023 LYME DISEASE IgG/IgM WB 10/28/2019 XR CHEST 2 VIEW PA & LAT 03/22/2023 MAMMOGRAM DIGITAL BILATERAL SCREEN 02/05 MAMMOGRAM DIGITAL BILATERAL SCREEN 08/01 MAMMOGRAM DIGITAL BILATERAL SCREEN 11/08 MAMMOGRAM DIGITAL BILATERAL SCREEN 04/17 MAMMOGRAM DIGITAL BILATERAL SCREEN 11/03 US ABD 08/03/2020 Stress Test 06/28/2020 CBC WITH AUTO DIFF 08/19/2023 Lipid Panel 08/01/2021 Lipid Panel 04/10/2022 Next Appt Details Provider Name:Jeff Yuan, 06/10/2024 03:00:00 PM, [address] [place] [address] DR, [facility] [address], [place], [address], Insurance Providers Payer Name Payer Address Payer Phone Subscriber Number Group Number Insured Name Patient Relationship to Insured Coverage Start Date Coverage End Date [employer] [address] [address] [place] [address] [id number] Lucy Israel Self - patient is the insured MEDICAID [address] [place], [place] [id number] [phone] [id number] Lucy Israel Self - patient is the insured Medical [...] Joseph es ophagus laser surgery both eyes 2019 Hospitalization History Reason Date(Month/Year) No history [facility] major depressi on October 2020
--- OUTSIDE RECORDS SUMMARY | 2024-06-04 13:06 | XMS_ITS ---
Author Organization Jeff Yuan III, MD Address [address] [place] [address] Care Team Providers Care Integrity Assessor Name Role Phone Jeff Yuan Primary Care Provider Allergies Allergen (clinical drug ingredient) Drug/Non Drug Allergy documented on EMR Reaction Allergy Type Onset Date Status No Known Drug Allergy Unknown Drug Allergy Active REASON FOR VISIT Hearing loss right ear, Neck pain, Metz's esophagus, Asthma, Depression Medications Medication SIG (Take, Route, Frequency, Duration) Notes Start Date End Date Status Melatonin 10 MG as directed Orally Active Cyclobenzaprine HCl 10 MG as directed Or ally one tablet po q 8 hours prn muscle spasm 08/08/2021 Active Omeprazole 20 MG 1 capsule 30 minutes before morning meal Orally Once a day Active ProAir HFA 108 (90 Base) MCG/ACT 1 puff as needed Inhalation every 4 hrs prn 04/21/2019 Active FLUoxetine HCl 10 MG Take 1 capsule by m outh once daily Active valACYclovir HCl 500 MG Take 1 tablet by mouth once daily Active Social History Tobacco Use: Social History Observation Description Date Details (start date - stop date) Former Smoker NA - NA Sex Assigned At : Social History Observation Description Sex Assigned At Female Tobacco Use/Smoking Question Answer Notes Patient is a former smoker How long has it been since you last smoked? 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 She denies vertigo or tinnitus. 01/07/2024 Obesity (BMI 30-39.9) (ICD-10 - E66.9) She has gained 6 pounds and her body mass index is 30. We have discussed diet and nutrition. We made a plan to lose weight at a rate of one half of a pound per week through a diet restricted in fat calories and sodium. 01/07/2024 Recurrent major depressive disorder, in partial [...] heavy pollen season earlier this spring. 01/07/2024 Metz's esophageal ulceration (ICD-10 - K22.10) She is known to have parents esophagus. The discomfort described under her sternum sounded more gastrointestinal than cardiac. She will double the omeprazole from once a day to twice a day. 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 01/07/2024 GERD without esophagitis (ICD-10 - K21.9) Her esophageal reflux symptoms are well-controlled with current medication. 01/07/2024 Former smoker (ICD-10 - Z87.891) She is well motivated not to smoke. We discussed a strategy to prevent relapse from time to stress or illness. Plan Of Treatment Medication Medication Name Sig Start Date Stop Date Notes Melatonin 10 MG as directed Orally Cyclobenzaprine HCl 10 MG as directed Or ally one tablet po q 8 hours prn muscle spasm 08/08/2021 Omeprazole 20 MG 1 capsule 30 minutes before morning meal Orally Once a day ProAir HFA 108 (90 Base) MCG/ACT 1 puff as needed Inhalation every 4 hrs prn 04/21/2019 FLUoxetine HCl 10 MG Take 1 capsule by m outh once daily valACYclovir HCl 500 MG Take 1 tablet by mouth once daily Next Appt Details Follow Up: 3 Weeks, Reason: Routine check-up Provider Name:Jeff Yuan, 06/10/2024 03:00:00 PM, [address] [place] [address], [address], Progress Notes * Felice ISRAELB:1980 (43 yo F)Acc No.[id number]:01/07/2024 Patient:?Lucy ISRAEL Provider:?Jeff Yuan MD :1980???Age:43 Y???Sex:Female D ate:01/07/2024 Address:[address] [place], [place] [id number] Subjective: * Chief Complaints: * ???Hearing loss right earNec k painBarrett's esophagusAsthmaDepression * HPI: ???COVID-19 Screening:?Questions?Have you experienced fever, chills, cough, sore throat, shortness of breath, difficulty breathing, muscle aches, loss of taste or smell??No ?Have you been exposed to the virus within the last 10 days??No ?Have you travelled internationally in the last 10 days??No ?Have you been exposed to COVID-19 in the past??No ???:?This telehealth visit took place over 15 min. with the patient at home and me in my office.? She gave consent for billing.The patient, a 43-year-old female, reported having issues with her ear and neck. She had been experiencing ear discomfort and neck pain. She managed to alleviate her ear discomfort by using [id number] medication and flushing her ear with warm water and hydrogen peroxide. This resulted in improved hearing. Her neck pain was attributed to her sleeping position, and she reported it as being a little stiff but overall manageable. She also mentioned using an inhaler as needed.? She is known to have asthma and uses the restroom needed.? A followup visit was arranged. * ROS:?General/Constitutional:?pain?Neck with range of motion.?Chills?denies.?Fatigue?admits.?Fever?denies.?ENT:?Decreased hearing?Both ears, right worse than left.?Respiratory:?Cough?denies.?Cardiovascular:?Chest pain with exertion?denies.?Dyspnea on exertion?denies.?Shortness of breath?denies.?Gastrointestinal:?Constipation?occasional.?Decreased appetite?denies.?Diarrhea?denies.?Heartburn?denies.?Nausea?denies.?Rectal bleeding?denies.?Vomiting?denies.?Hematology:?bruising?denies.?petechiae?denies.?Swollen glands?none have been noted.?Genitourinary:?Frequent urination?denies.?Musculoskeletal:?Muscle aches?denies.?Painful joints?denies.?Sciatica?denies.?Weakness?denies.?Skin:?Itching?denies.?Rash?denies.?Skin lesion(s)?denies.?Neurologic:?Difficulty speaking?denies.?Dizziness?denies.?Headache?denies.?Low back pain?denies.?Psychiatric:?Depressed mood?which is mild.? * Medical History:? * Surgical History:?laser surg kayleigh both eyes 2019EGD, [facility]. DR.Yesenia King, Barretts esophagus No history * Hospitalization/Major Diagno stic Procedure:?[facility] major depression October 2020No history * Family History:?Father: 61 y rs, No [...] disorder, or addictions. * Social History:?Tobacco Use:?Tobacco Use/Smoking?Patient is a?former smoker ?How long has it been since you last smoked??> 10 years ?Additional Findings: Tobacco Non-User?Ex-cigarette smoker ???She is to Jeff. She has 2 children. 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 She has no toxic exposures. She is a former smoker. She is not a Alevism. She was born in [place]. * Medications:?TakingvalACYclo vir HCl 500 MG Tablet Take 1 tablet by mouth once daily FLUoxetine HCl 10 MG Capsule Take 1 capsule by mouth once daily ProAir HFA 108 (90 Base) MCG/ACT Aerosol Solution 1 puff as needed Inhalation every 4 hrs prn Omeprazole 20 MG Capsule Delayed Release 1 capsule 30 minutes before morning meal Orally Once a day Cyclobenzaprine HCl 10 MG Tablet as directed Orally one tablet po q 8 hours prn muscle spasm Melatonin 10 MG Capsule as directed Orally Medication List reviewed and reconciled with the patientTaking valACYclovir HCl 500 MG Tablet Take 1 tablet by mouth once daily Taking FLUoxetine HCl 10 MG Capsule Take 1 capsule by mouth once daily Taking ProAir HFA 108 (90 Base) MCG/ACT Aerosol Solution 1 puff as needed Inhalation every 4 hrs prn Taking Omeprazole 20 MG Capsule Delayed Release 1 capsule 30 minutes before morning meal Orally Once a day Taking Cyclobenzaprine HCl 10 MG Tablet as directed Orally one tablet po q 8 hours prn muscle spasm Taking Melatonin 10 MG Capsule as directed Orally Medication List reviewed and reconciled with the patient * Allergies:?No Known Drug All ergyno[Allergies Verified] Objective: * Vitals:?Ht: 69, Wt: 211, BMI :31.16, Ht-cm: 175.26, Wt-k.71. Assessment: * Assessment: 1.?Cervical radiculopathy - M54.12 (Primary)???Notes :The pain has diminished since her last visit. She is being careful to do no heavy lifting or undue exertion. 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 The anatomy is unremarkable on examination. If this does not resolve in the near future she will be referred to ENT. She denies vertigo or tinnitus.???3.?Obesity (BMI 30-39.9) - E66.9???Notes :She has gained 6 pounds and her body mass index is 30. We have discussed diet and nutrition. We made a plan to lose weight at a rate of one half of a pound per week through a diet restricted in fat calories and sodium.???4.?Recurrent major depressive disorder, in partial remission - F33.41???Notes :She will continue with her mental health providers. She will continue on the current dose of Prozac. She will be seen frequently. She reports slow improvement with medication. She is not feeling suicidal.???5.?Mild intermittent asthma without complication - J45.20???Notes :She was not wheezing today. She reports very little difficulty during the heavy pollen season earlier this spring.???6.?Metz's esophageal ulceration - K22.10???Notes :She is known to have parents esophagus. The discomfort described under her sternum sounded more gastrointestinal than cardiac. She will double the omeprazole from once a day to twice a day. She was urged to keep her appointments with her tank pumper panelboard in have periodic upper endoscopies.???7.?GERD without esophagitis - K21.9???Notes :Her esophageal reflux symptoms are well-controlled with current medication.???8.?Former smoker - Z87.891???Notes :She is well motivated not to smoke. We discussed a strategy to prevent relapse from time to stress or illness.??? Plan: * Treatment: * Procedure Codes:?78779 PHONE E/M BY PHYS 11-20 MIN * Preventive Medicine:? ??Counseling:?Care goal follow-up plan:?Counseling for abnormal BMI given?Yes ?Above Normal BMI Follow-up?Dietary management education, guidance, and counseling, Dietary needs education, Exercise promotion: strength training, Exercise promotion: stretching, Feeding regime, Giving encouragement to exercise, Lifestyle education regarding diet, Nutrition / feeding management, Nutrition therapy, Prescribed activity/exercise education, Prescribed diet education, Prescribed dietary intake, Special diet education, Weight monitoring , Intervention, Order not done: Medical or Other reason not done ?Smoking/Tobacco Use?Patient counseled on the dangers of tobacco use and urged to quit.?01/07/2024 * Follow Up:?3 Weeks (Reason: Routine check-up) * Images: * Sign off status: Completed true * Provider:?Jeff Yuan MD Date:?10/2023 Generated for Sidney mcpherson/Tomas/Fidelitting on:?06/04/2024 01:06 PM EST History and Physical Notes * HPI (History of Present Illness) Category Sub-Category Detail Notes COVID-19 Screening Questions Have you had any new onset fever, chills, cough, congestion, sore throat, shortness of breath, muscle aches?: No Have you been exposed to the virus with n the last 10 days?: No Have you travelled internationally in e last 10 days?: No Have you been exposed to COVID-19 in the past?: No
--- OUTSIDE RECORDS SUMMARY | 2024-06-04 13:07 | XMS_ITS ---
Author Organization Jeff Yuan III, MD Address [address] [place] [place] [address] Care Team Providers Care Manager Clinical Name Role Phone Jeff Yuan Primary Care [...] Date Provider Diagnosis Jeff Yuan III, MD [address] [place] [address] [address] [place] [id number] 04/20/2024 Jeff Yuan Plan Of Treatment Medication [...] Details Provider Name:Jeff Yuan, 06/10/2024 03:00:00 PM, [address] [place] [address] , [place] [address], [place], [address], Progress Notes * Felice ISRAELB:1980 (43 yo F)Acc No.[id number]:04/20/2024 Progress Notes Patient:?YANIRADaniela Provider:?Jeff Yuan MD :1980???Age:43 Y???Sex:Female D ate:04/20/2024 Address:[address] [place] [address] [id number] Subjective: * Chief Complaints: * ???1. Annual [...] No history . * Hospitalization/Major Diagno stic Procedure:?[facility] major depression October 2020, No history . 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 She is a former smoker. She is not a Mandaeism. She was born in [place]. * Medications:?Taking valACYcl ovir HCl 500 MG [...] Yuan MD Date:?04/02 Generated for Sidney mcpherson/Tomas/eTransmitting on:?06/04/2024 01:06 PM EST History and Physical [...]
--- OUTSIDE RECORDS SUMMARY | 2024-06-04 13:07 | XMS_ITS ---
Author Organization Jeff Yuan III, MD Address [address] [place] [address] [place] [address] Care Team Providers Care Shirt Ironer Name Role Phone Jeff Yuan Primary Care Provider [phone] REASON FOR VISIT Rx request Medications Medication SIG (Take, Route, Frequency, Duration) Notes Start Date End Date Status COVID-19 At Home Antigen Test - as directed In Vitro as needed for 30 days 05/13/2024 05/08/2025 Active Social History Sex Assigned At : Social History Observation Description Sex Assigned At Female Encounters Encounter Location Date Provider Diagnosis Jeff Yuan III, MD [address] [place] [address] [place] [address] 05/13/2024 Jeff Yuan Plan Of Treatment Medication Medication Name Sig Start Date Stop Date Notes COVID-19 At Home Antigen Caryn t - as directed In Vitro as needed for 30 days 05/13/2024 05/08/2025 Next Appt Details Provider Name:Jeff Yuan, 06/10/2024 03:00:00 PM, [address] [place] [address] [place], [address], Progress Notes * Felice ISRAELB:1980 (43 yo F)Acc No.[id number]:05/13/2024 Patient:?Lucy ISRAEL :1980???Age:43 Y???Sex:Female Address:[place], [address] * Refills? Start COVID-19 At Home Antigen Test Kit, -, In Vitro, 1 Kit, as directed, as needed, 30 days, Refills=11 * true * Date:? Generated for Sidney mcpherson/Tomas/Fidelitting on:?06/04/2024 01:06 PM EST
== END 2024-06-04 10:51 | disposition home or self-care (01) ==
LOC: HO.MAMMO 10:50
PROVIDERS: PCP Internal Medicine Medical Oncology; Visit Provider Internal Medicine Medical Oncology
DX: Z12.31 Encounter for screening mammogram for malignant neoplasm of breast (principal)
CPT/HCPCS: 77063; 77067

== ENCOUNTER → 2024-06-04 11:00 | Outpatient (BNV) | payer MEDICAID, SELFPAY | PROVIDERS: PCP Internal Medicine Medical Oncology; Visit Provider Internal Medicine | DX: Z12.31 Encounter for screening mammogram for malignant neoplasm of breast (principal) | CPT/HCPCS: 77063; 77067 ==

== ENCOUNTER 2024-06-12 10:38 | Outpatient (REF) | payer OTHER, SELFPAY ==
[2024-06-12 10:50] LABS: MANUAL DIFF FLAG NO
[2024-06-12 11:45] LABS: Basophils Absolute Auto 0.1 X10*3/uL (0.0-0.2); Basophils Percent Auto 0.9 % (0-2); Eosinophils Absolute Auto 0.2 X10*3/uL (0.0-0.4); Eosinophils Percent Auto 3.4 % (0-4); Hematocrit 29.7 % (37.0-47.0); Hemoglobin 9.1 g/dl (12.0-16.0); Imm Gran Abs Auto 0.02 X10*3/uL (0.00-0.03); Imm Gran Pct Auto 0.3 % (0.0-0.4); Lymphocytes Percent Auto 43.4 % (20-40); Mean Corpuscular HGB Conc 30.6 g/dl (31.0-35.0); Mean Corpuscular Hemoglobin 24.9 pg (27.0-33.0); Mean Corpuscular Volume 81.1 fL (80.0-98.0); Mean Platelet Volume 10.8 fL (9.4-12.3); Monocytes Absolute Auto 0.6 X10*3/uL (0.1-1.2); Monocytes Percent Auto 8.2 % (2-11); Neutrophils Percent Auto 43.8 % (45-73); Platelet Count 405 X10*3/uL (160-400); Red Blood Count 3.66 X10*6/uL (4.20-5.50); Red Cell Distribution Width 17.4 % (11.0-16.0); White Blood Count 6.8 X10*3/uL (4.8-10.8)
--- OUTSIDE RECORDS SUMMARY | 2024-06-12 12:13 | XMS_ITS | Patient Health Record ---
Author Organization Jeff Yuan III, MD Address [address] [place] [address] Care Team Providers Care Manager Utilization Name Role Phone Jeff Yuan Primary Care [...] Negative - Menstrating No Lipid Panel Reviewed date:08/30/2023 03:49:41 PM Interpretation: Performing Lab:[facility], [address] [place] [phone] Notes/Report: Triglycerides 121 <150 mg/dL Desirable Triglyceride: [...] Thyroxine) Reviewed date:08/30/2023 03:49:41 PM Interpretation: Performing Lab:[facility], [address] [place] [phone] Notes/Report: Free T4 (Free Thyroxine) 0.87 0.71-1.85 ng/dL Complete Blood Count Auto Di ff Reviewed date:08/30/2023 03:49:41 PM Interpretation: Performing Lab:[facility], [address] [place] [phone] Notes/Report: White Blood Count 8.4 4.8-10.8 X10*3/uL [...] Hormone Reviewed date:08/30/2023 03:49:41 PM Interpretation: Performing Lab:[facility], [address] [place] [phone] Notes/Report: Thyroid Stimulating Hormone 0.54 0.32-4.0 uIU/ mL TSH 3rd Generation ([facility]) SARS-CoV2/FLU/RSV Reviewed date:05/17/2024 09:55:42 AM Interpretation: Performing Lab:[facility], [address] [place] [phone] Notes/Report: Influenza A PCR NEGATIVE Negative Influenza [...] by authorized laboratories. Testing performed on the [employer] GeneXpert utilizing real-time RT-PCR. All SARS CoV2 and positive influenza A/B results are reported to [facility]. Complete Blood Count Auto Di ff (Not yet reviewed by provider) Interpretation: Performing Lab:[facility], [address] [place] [phone] Notes/Report: White Blood Count 6.8 4.8-10.8 X10*3/uL Red Blood Count 3.66 4.20-5.50 X10*6/uL Hemoglobin 9.1 12.0-16.0 g/dl Hematocrit 29.7 37.0-47.0 % Mean Corpuscular Volume 81.1 80.0-98.0 fL Mean Corpuscular Hemoglobin 24.9 27.0-33.0 pg Mean Corpuscular HGB Conc 30.6 31.0-35.0 g/dl Red Cell Distribution Width 17.4 11.0-16.0 % Platelet Count 405 160-400 X10*3/uL Mean Platelet Volume 10.8 9.4-12.3 fL Neutrophils Percent Auto 43.8 45-73 % Imm Gran Pct Auto 0.3 0.0-0.4 % Lymphocytes Percent Auto 43.4 20-40 % Monocytes Percent Auto 8.2 2-11 % Eosinophils Percent Auto 3.4 0-4 % Basophils Percent Auto 0.9 0-2 % NRBC Pct Auto 0.0 0.0-0.2 /100WBC Neutrophils Absolute Auto 3.0 2.0-8.3 x10*3/u L Imm Gran Abs Auto 0.02 0.00-0.03 X10*3/uL Lymphocytes Absolute Auto 3.0 1.2-4.9 X10*3/u L Monocytes Absolute Auto 0.6 0.1-1.2 X10*3/uL Eosinophils Absolute Auto 0.2 0.0-0.4 X10*3/u L Basophils Absolute Auto 0.1 0.0-0.2 X10*3/uL NRBC Abs Auto 0.000 0.0-0.012 X10*3/uL Reason For Referral Reason evaluate and treatme nt breast reduction Diagnosis 1 Annual physical exam (Z00.00) Referral Organization Jeff Yuan III, MD Referring Provider First Name Jeff Referring Provider Last Name Kwabena Referring Provider Speciality Internal edicine Referred Provider EJ HECK Referred Provider Specialty Plastic and Reconstructive Surgery General Notes Loren Lehman [employer]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 Referral Priority Routine Reason yearly pelvic and pa p smear Diagnosis 1 Annual physical exam (Z00.00) Referral Organization Jeff Yuan III, MD Referring Provider First Name Jeff Referring Provider Last Name Kwabena Referring Provider Speciality Internal edicine Referred Organization [facility] Marquita nter Referred Provider [facility]YN Referred Address [address] [place] [address],[place], [place],[id number], Referred Provider Specialty OB - Gynecol ogy Referral Priority Routine Medications Medication SIG (Take, Route, Frequency, Duration) Notes Start Date End Date Status Melatonin 10 MG as directed Orally Active COVID-19 At Home Antigen Test - as directed In Vitro as needed for 30 days 05/13/2024 05/08/2025 Not-Taking Omeprazole 40 MG 1 capsule 1/2 to 1 hour before morning meal Orally Once a day for 90 days 06/10/2024 Active FLUoxetine HCl 20 MG Take 1 capsule by mouth once daily Not-Taking valACYclovir HCl 500 MG Take 1 tablet by mouth once daily Active Omeprazole 20 MG 1 capsule 30 minutes before morning meal Orally Once a day Active ProAir HFA 108 (90 Base) MCG/ACT 1 puff as needed Inhalation every 4 hrs prn 04/21/2019 Active Immunizations Vaccine Route Administration Date Status [...] Problem Status W/U Status Risk Notes Problem 0485868 Former smoker (Z87.891) Active confirmed She is well motivated not to smoke. We discussed a strategy to prevent relapse from time to stress or illness. Problem 970549637664266 Obesity (BMI 30.0-34.9) (E66.9) Active confirmed Her body mass index is 30. We discussed diet and nutrition. We formulated a plan to lose weight at a rate of one half of a pound per week. Problem 739908669 GERD without esophagitis (K21.9) Active confirmed Her esophageal reflux symptoms are well-controlled with current medication. Problem 882670192 Obesity (BMI 30-39.9) (E66.9) Active confirmed She has gained 6 pounds and her body mass index is 30. We have discussed diet and nutrition. We made a plan to lose weight at a rate of one half of a pound per week through a diet restricted in fat calories and sodium. Problem 27823739 Cervical radiculopathy (M54.12) Active confirmed The pain has diminished since her last visit. She is being careful to do no heavy lifting or undue exertion. She will call for an appointment if the pain returns. Problem 823156601 Mild intermittent asthma without complication (J45.20) Active confirmed She was not wheezing today. She reports very little difficulty during the heavy pollen season earlier this spring. 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 The discomfort described under her sternum sounded more gastrointestinal than cardiac. She will double the omeprazole from once a day to twice a day. She was urged to keep her appointments with her chief underwriter in have periodic upper endoscopies. Problem Urinary incontinence (422847892) Incontinence of urine in female (R32) Active confirmed Problem 306830300516617 Myopia of both eyes (H52.13) Active confirmed Problem 06271306 Herpes simplex infection of genitourinary system (A60.00) Active confirmed She has medicat ion for genital herpes which I have refilled. She will take valacyclovir daily. If she does not take this medication she has not break about once a week she says. She is not at this time. Problem 71056320 Recurrent major depressive disorder, in partial remission (F33.41) Active confirmed She will contin ue with her mental health providers. She will continue on the current dose of Prozac. She will be seen frequently. She reports slow improvement with medication. She is not feeling suicidal. 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 The anatomy is unremarkable on examination. If this does not resolve in the near future she will be referred to ENT. She denies vertigo or tinnitus. Vital Signs Heart Rate 57 /min 06/10/2024 Temperature 98.0 degrees Fahrenheit 06/10/2024 Blood pressure diastolic 69 mm Hg 06/10/2024 Height 69 in 06/10/2024 Blood pressure systolic 140 mm Hg 06/10/2024 Weight 214 lbs 06/10/2024 BMI 31.6 kg/m2 06/10/2024 Encounters Encounter Location Date Provider Diagnosis Jeff Yuan III, MD [address] [place] [address] [place] [address] 06/10/2024 Jeff Yuan Annual physical exam Z00.00 ; Obesity (BMI 30.0-34.9) E66.9 ; GERD without esophagitis K21.9 and Mild intermittent asthma without complication J45.20 Jeff Yuan III, MD [address] [place] [address] [place] [address] 08/19/2023 Jeff Yuan Metz's esophageal ulceration K22.10 ; Mild intermittent asthma without complication J45.20 ; GERD without esophagitis K21.9 ; Sleep apnea in adult G47.30 ; Former smoker Z87.891 ; Cervical radiculopathy M54.12 ; Recurrent major depressive disorder, in partial remission F33.41 ; Obesity (BMI 30.0-34.9) E66.9 and Abnormal smell R43.1 Jeff Yuan III, MD [address] [place] [address] [place] [address] 08/30/2023 Jeff Yuan Metz's esophageal ulceration K22.10 ; Mild intermittent asthma without complication J45.20 ; GERD without esophagitis K21.9 ; Recurrent major depressive disorder, in partial remission F33.41 ; Sleep apnea in adult G47.30 ; Former smoker Z87.891 ; Cervical radiculopathy M54.12 and Obesity (BMI 30.0-34.9) E66.9 Jeff Yuan III, MD [address] [place] [address] [place] [address] 12/30/2023 Jeff Yuan Neck pain M54.2 ; 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 with unrestricted hearing of left ear H91.21 ; GERD without esophagitis K21.9 ; Mild intermittent asthma without complication J45.20 ; Recurrent major depressive disorder, in partial remission F33.41 ; Former smoker Z87.891 and Obesity (BMI 30-39.9) E66.9 Jeff Yuan III, MD [address] [place] [address] [place] [address] 01/07/2024 Jeff Yuan Cervical radiculopat hy M54.12 ; 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 with unrestricted hearing of left ear H91.21 ; Obesity (BMI 30-39.9) E66.9 ; Recurrent major depressive disorder, in partial remission F33.41 ; Mild intermittent asthma without complication J45.20 ; Metz's esophageal ulceration K22.10 ; GERD without esophagitis K21.9 and Former smoker Z87.891 Jeff Yuan III, MD [address] [place] [address] [address] [place] [address] 05/13/2024 Jeff Yuan Assessments Encounter Date Diagnosis (ICD Code) Assessment Notes Treatment Notes Treatment Clinical Notes 06/10/2024 Annual physical exam (ICD-10 - Z00.00) 08/19/2023 Mild intermittent asthma without complication (ICD-10 [...] urged to keep her appointments with her chief underwriter in have periodic upper endoscopies. 08/30/2023 Mild [...] urged to keep her appointments with her chief underwriter in have periodic upper endoscopies. 12/30/2023 Neck [...] to ENT. She denies vertigo or tinnitus. 06/10/2024 Obesity (BMI 30.0-34.9) (ICD-10 - E66.9) 08/19/2023 GERD without esophagitis (ICD-10 - K21.9) [...] diet restricted in fat calories and sodium. 06/10/2024 GERD without esophagitis (ICD-10 - K21.9) 08/19/2023 Sleep apnea in adult (ICD-10 - [...] with medication. She is not feeling suicidal. 06/10/2024 Mild intermittent asthma without complication (ICD-10 - J45.20) 08/19/2023 Former smoker (ICD-10 - Z87.891) She [...] urged to keep her appointments with her chief underwriter in have periodic upper endoscopies. 08/19/2023 Recurrent [...] Date PROFILE, FASTING (COMPREHENSIVE METABOLI C) 06/10/2024 PROFILE, FASTING (COMPREHENSIVE METABOLI C) 11/08/2022 PROFILE, FASTING (COMPREHENSIVE METABOLI C) 11/03/2021 PROFILE, FASTING (COMPREHENSIVE METABOLI C) 04/10/2022 PROFILE, FASTING (COMPREHENSIVE METABOLI C) 08/01/2021 PROFILE, FASTING (COMPREHENSIVE METABOLI C) 06/28/2020 PROFILE, FASTING (COMPREHENSIVE METABOLI C) 08/19/2023 PROFILE, RANDOM (COMPREHENSIVE METABOLIC ) 03/22/2023 LIPID PANEL 06/28/2020 LIPID PANEL 11/08/2022 FREE T4 (FT4) 06/28/2020 TSH (THYROID STIMULATING HORMONE) 2023 TSH (THYROID STIMULATING HORMONE) 2020 B12 11/05/2019 CBC w DIFF 04/10/2022 CBC w DIFF 08/01/2021 CBC w DIFF 06/10/2024 CBC w DIFF 11/03/2021 CBC w DIFF 06/28/2020 CBC w DIFF 11/08/2022 CBC w DIFF 03/22/2023 LYME DISEASE IgG/IgM WB 10/28/2019 CBC WITH AUTO DIFF 08/19/2023 Complete Blood Count Auto Diff Lipid Panel 04/10/2022 Lipid Panel 08/01/2021 Lipid Panel 06/10/2024 Next Appt Details Provider Name:Jeff Yuan, 10/14/2024 03:15:00 PM, [address] [place] [address] [address], [place], [address], Provider Name:Jeff Yuan, 06/15/2025 03:00:00 PM, [address] [place] [address] [address], [place], [address], Insurance Providers Payer Name Payer Address Payer Phone Subscriber Number Group Number Insured Name Patient Relationship to Insured Coverage Start Date Coverage End Date [employer] [address] [address] [place] [address] [id number] Lucy Israel Self - patient is the insured MEDICAID [address] [place], [place] [id number] [phone] [id number] Lucy Israel Self - patient is the insured Medical (General) History Medical History History ICD Code Asthma J45.909 Genital herpes A60.00 GERD (gastroesophageal reflux disease) K 21.9 Barretts esophagus obesity nearsighted, Lasik degenerative disc disease C5-6 on MRI daytime somnolence and snoring former smoker October 2020 major depressive episode wit h suicidal ideation Surgical History Surgery Date(Month/Year) No history EGD, [facility]. DR.Yesenia King, Marge es ophagus laser surgery both eyes 2018 Hospitalization History Reason Date(Month/Year) No history [facility] major depressi on October 2020
--- OUTSIDE RECORDS SUMMARY | 2024-06-12 12:14 | XMS_ITS ---
Author Organization Jeff Yuan III, MD Address [address] [place] [address] Care Team Providers Care Community Relations Liaison Name Role Phone Jeff Yuan Primary Care [...] Date Provider Diagnosis Jeff Yuan III, MD [address] [place] [address] [address] [place] [place] [phone] 04/20/2024 Jeff Yuan Plan Of Treatment Medication [...] daily Next Appt Details Provider Name:Jeff Yuan, 10/14/2024 03:15:00 PM, [address] [place] [address] [address], [place], [address], Provider Name:Jeff Yuan, 06/15/2025 03:00:00 PM, [address] [place] [address] [address], [place], [phone], Progress Notes * Felice ISRAELB:1980 (43 yo F)Acc No.[id number]:04/20/2024 Progress Notes Patient:?Lucy ISRAEL Provider:?Jeff Yuan MD :1980???Age:43 Y???Sex:Female D ate:04/20/2024 Address:[address] [place] [address] [address] [place] [id number] Subjective: * Chief Complaints: * ???1. Annual [...] No history . * Hospitalization/Major Diagno stic Procedure:?[facility] major depression October 2020, No history . 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 She has no toxic exposures. She is a former smoker. She is not a Sabianism. She was born in [place]. * Medications:?Taking valACYcl ovir HCl 500 MG [...] Yuan MD Date:?04/02 Generated for Sidney mcpherson/Tomas/eTransmitting on:?06/12/2024 12:14 PM EDT History and Physical Notes * [...]
--- OUTSIDE RECORDS SUMMARY | 2024-06-12 12:14 | XMS_ITS ---
Author Organization Jeff Yuan III, MD Address [address] [place] [address] Care Team Providers Care Bottom Liner Name Role Phone Jeff Yuan Primary Care Provider [phone] Allergies Allergen (clinical drug ingredient) Drug/Non Drug [...] 1.3 BLD Negative Negative - Menstrating No Reason For Referral Reason evaluate and treatme nt breast reduction Diagnosis 1 Annual physical exam (Z00.00) Referral Organization Jeff Yuan III, MD Referring Provider First Name Jeff Referring Provider Last Name Kwabena Referring Provider Speciality Internal M edicine Referred Provider EJ HECK Referred Provider Specialty Plastic and Reconstructive Surgery General Notes Loren Lehman PROJECT ENGINEER 06/11 02:11:45 PM >spoke to Dr Heck [...] Last Name Kwabena Referring Provider Speciality Internal M edicine Referred Organization [facility] Referred Provider [facility] Referred Address [address] [place] [address],[place], [id number] Referred Provider Specialty OB - Gynecol ogy Referral Priority Routine REASON FOR VISIT Annual Exam, since May 14, 2024 have not been taking the anti-depressants and patient does notfeel any different, Taking Omeprazole 40 mg for acid reflux, When moving at a fast pace have rapid heart rate left arm gets constricted and projects down, Left arm elbow, nerve pain x 3 months, Saw aPT at work for Hip alignment, neck ,back,shoulder pain discuss referral for breast reduction surgery Medications Medication SIG (Take, Route, Frequency, Duration) [...] ast year? No Points 0 Interpretation Negative Vital Signs Temperature 98.0 degrees Fahrenheit 06/11/19 25 Blood pressure systolic 140 mm Hg 06/11/19 25 Blood pressure diastolic 69 mm Hg 025 Heart Rate 57 /min 06/10/2024 Height 69 in 06/10/2024 Weight 214 lbs 06/10/2024 BMI 31.6 kg/m2 06/10/2024 Encounters Encounter Location Date Provider Diagnosis Jeff Yuan III, MD [address] [place] [address] [place] [address] 06/10/2024 Jeff Yuan Annual physical exam Z00.00 ; Obesity (BMI 30.0-34.9) E66.9 ; GERD without esophagitis K21.9 and Mild intermittent asthma without complication J45.20 Assessments Encounter Date Diagnosis (ICD Code) Assessment Notes Treat ment Notes Treatment Clinical Notes 06/10/2024 Annual physical exam (ICD-10 - Z00.00) 06/10/2024 Obesity (BMI 30.0-34.9) (ICD-10 - E66.9) 06/10/2024 GERD without esophagitis (ICD-10 - K21.9) 06/10/2024 Mild intermittent asthma without complication (ICD-10 - J45.20) Plan Of Treatment Medication Medication Name Sig Start Date Stop Date Notes Omeprazole 40 MG 1 capsule 1/2 to 1 h our before morning meal Orally Once a day for 90 days 06/10/2024 valACYclovir HCl 500 MG Take 1 tablet by mouth once daily ProAir HFA 108 (90 Base) MCG/ACT 1 puff as needed Inhalation every 4 hrs prn 04/21/2019 Melatonin 10 MG as directed Orally Pending Test Test Name Order Date PROFILE, FASTING (COMPREHENSIVE METABOLI C) 06/10/2024 CBC w DIFF 06/10/2024 Lipid Panel 06/10/2024 Referrals Referral Date Details 06/10/2024 06/10/2024, evaluate and treatment breast reduction, EJ HECK 06/10/2024 06/10/2024, yearly p elvic and pap smear, [facility], [address] [place] [address], [place], [place], [phone], Next Appt Details Follow Up: 4 Months, Reason: ov Provider Name:Jeff Yuan, 10/14/2024 03:15:00 PM, [address] [place] [address] [place], [place], [address], Provider Name:Jeff Yuan, 06/15/2025 03:00:00 PM, [address] [place] [address] [place], [address], Progress Notes * Cesar ISRAEL:1980 (43 yo F)Acc No.[id number]:06/10/2024 Progress Notes Patient:?Lucy ISRAEL Provider:?Jeff Yuan MD :1980???Age:43 Y???Sex:Female D ate:06/10/2024 Address: [id number] Subjective: * Chief Complaints: * ???1. Annual Exam. 2. since May 14, 2024 have not been taking the anti-depressants and patient does not feel any different. 3. Taking Omeprazole 40 mg for acid reflux. 4. When moving at a fast pace have rapid heart rate left arm gets constricted and projects down. 5. Left arm elbow, nerve pain x 3 months. 6. Saw a PT at work for Hip alignment. 7. Neck ,back,shoulder pain discuss referral for breast reduction surgery. * HPI: ???Depression Screening:?flu sev weeks ago, esophag is same, fgreuent still, long talk of surger for barretts, wants 40 mg of omep not 20, pain upper? right neck ? glandmammo /. ?PHQ-9?Little interest or pleasure in doing things?Nearly every day ?Feeling down, depressed, or hopeless?Several days ?Trouble falling or staying asleep, or sleeping too much?Nearly every day ?Feeling tired or having little energy?Nearly every day ?Poor appetite or overeating?Nearly every day ?Feeling bad about yourself or that you are a failure, or have let yourself or your family down?Nearly every day ?Trouble concentrating on things, such as reading the newspaper or watching television?Not at all ?Moving or speaking so slowly that other people could have noticed; or the opposite, being so fidgety or restless that you have been moving around a lot more than usual?More than half the days ?Thoughts that you would be better off or of hurting yourself in some way?Not at all ?Total Score?18 ?Interpretation?Moderately Severe Depression ???COVID-19 Screening:?Questions?Have you had any new onset fever, chills, cough, congestion, sore throat, shortness of breath, muscle aches??No ???SDOH Questions:?SDOH Questions?In the past year have you been worried about losing your housing??No ?In the past year have you or any family members you live with been unable to get any of the following when it was really needed? Check all that apply:?Decline to answer * ROS:?General/Constitutional:?pain?only normal aches and pains.?Chills?denies.?Fatigue?admits.?Fever?denies.?ENT:?Decreased hearing?denies.?Respiratory:?Cough?denies.?Cardiovascular:?Chest [...] No history . * Hospitalization/Major Diagno stic Procedure:?[facility] major depression October 2020, No history [...] since you last smoked??Greater than 10 years ?Additional Findings: Tobacco non-user?Ex-cigarette smoker ???Drugs/Alcohol:?Drugs?Have you used drugs other than those for medical reasons in the past 12 months??No ???Drug/Alcohol:?AUDIT-C (Standard)?Did you have a drink containing alcohol in the past year??No ?Points?0 ?Interpretation?Negative ???She is to Jeff. She has 2 children. 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 She has no toxic exposures. She is a former smoker. She is not a Evangelical. She was born in [place]. * Medications:?Taking valACYcl ovir HCl 500 MG Tablet Take 1 tablet by mouth once daily , Taking ProAir HFA 108 (90 Base) MCG/ACT Aerosol Solution 1 puff as needed Inhalation every 4 hrs prn , Taking Omeprazole 20 MG Capsule Delayed Release 1 capsule 30 minutes before morning meal Orally Once a day , Taking Melatonin 10 MG Capsule as directed Orally , Not-Taking/PRN FLUoxetine HCl 20 MG Capsule Take 1 capsule by mouth once daily , Not-Taking/PRN COVID-19 At Home Antigen Test - Kit as directed In Vitro as needed , stop date 05/08/2025, Discontinued Cyclobenzaprine HCl 10 MG Tablet as directed Orally one tablet po q 8 hours prn muscle spasm , Medication List reviewed and reconciled with the patient * Allergies:?No Known Drug All ergy. Objective: * Vitals:?Ht: 69, Wt: 214, BMI :31.6, BP: 140/69, HR: 57, Temp: 98.0, Ht-cm: 175.26, Wt-k.07. * ???Past Orders: ???Lab:SARS-CoV2/FLU/RSV (Or mikala Date - 05/14/2024) (Collection Date & Time - 05/14/2024 09:22 AM) ? Value Reference Range ?Influenza A PCR NEGATIVE Nega tive - ?Influenza B PCR POSITIVE A Nega tive - ?Resp Syncy Virus RNA Qual PCR NEGATIVE Negative - ?SARS COV2 PCR INHOUSE NEGATIVE Negative - Lab:URINE [...] Neg Menstrating No No No * Examination: ???General Examination: ?GENERAL APPEARANCE:?pleasant, well [...] lower extremities, sensory exam intact.?PSYCH:?alert, oriented.? Assessment: * Assessment: 1.?Annual physical exam - Z0 0.00 (Primary)???2.?Obesity (BMI 30.0-34.9) - E66.9???3.?GERD without esophagitis - K21.9???4.?Mild intermittent asthma without complication - J45.20??? Plan: * Treatment: ? Value Reference Range ?SG 1.015 1.005 - 1.025 * ?pH 6.5 5.0 - 9.0 * ?ABHI 15+- Negative - * ?NIT negative Negative - * ?PRO 15 Negative - Trac e * ?GLU Negative Negative - * ?KET 5 Negative - * ?UBG 0.2 0.1 - 1.8 * ?SOFIYA 1 0.2 - 1.3 * ?BLD Negative Negative - * ?Menstrating No ? Referral To:EJ HECK??Plastic and Reconstructive Surgery ?Reason:evaluateand treatment breast reduction ? Referral To:[facility]??OB - Gynecology ?Reason:yearly pelvic and pap smear 2.?Obesity (BMI 30.0-34.9)?LAB: PROFILE, FASTING (COMPREHENSIVE METABOLIC) ?LAB: CBC w DIFF ?LAB: Lipid Panel3.?GERD without esophagitis?LAB: PROFILE, FASTING (COMPREHENSIVE METABOLIC) ?LAB: CBC w DIFF ?LAB: Lipid Panel4.?Mild intermittent asthma without complication?LAB: PROFILE, FASTING (COMPREHENSIVE METABOLIC) ?LAB: CBC w DIFF ?LAB: Lipid Panel5.?Others? Continue valACYclovir HCl Tablet, 500 MG, Take 1 tablet by mouth once daily;?Continue ProAir HFA Aerosol Solution, 108 (90 Base) MCG/ACT, 1 puff as needed, Inhalation, every 4 hrs prn;?Continue Melatonin Capsule, 10 MG, as directed, Orally.?? * Procedure Codes:?94795 URINE -NO MICRO * Preventive Medicine:? ??Counseling:?Care goal follow-up plan:?Counseling [...] done: Medical or Other reason not done * Follow Up:?4 Months (Reason: ov) * Images: * The named appointment provid er may or may not be the originator of this progress note, and it is not deemed complete until electronically signed by the appointment provider. Sign off status: Pending * Provider:?Jeff Yuan MD Date:?05/30 Generated for Sidney mcpherson/Tomas/Fidelitting on:?06/12/2024 12:14 PM EDT History and Physical [...] days Thoughts that you would be b badlomero off or of hurting yourself in some way: Not at all Total Score: 18 Interpretation: Moderately Severe Depres delia COVID-19 Screening Questions Have you had any [...] PSYCH: alert, oriented ORAL CAVITY: normal, unremarkable Consultation Request Notes Referral Date Referring Provider Referred Provider Not es 06/10/2024 Jeff Yuan MELISSA evaluate a nd treatment breast reduction 06/10/2024 Jeff Yuan [facility] [place], [facility] yearly pelvic and pap smear
--- OUTSIDE RECORDS SUMMARY | 2024-06-12 12:14 | XMS_ITS ---
Author Organization Jeff Yuan III, MD Address [address] [place] [address] Care Team Providers Care Die Trimmer Name Role Phone Jeff Yuan Primary Care Provider REASON FOR VISIT Rx request Medications Medication SIG (Take, Route, Frequency, Duration) Notes Start Date End Date Status COVID-19 At Home Antigen Test - as directed In Vitro as needed for 30 days 05/13/2024 05/08/2025 Active Social History Sex Assigned At : Social History Observation Description Sex Assigned At Female Encounters Encounter Location Date Provider Diagnosis Jeff Yuan III, MD [address] [place] [address] [place] [address] 05/13/2024 Jeff Yuan Plan Of Treatment Medication Medication Name Sig Start Date Stop Date Notes COVID-19 At Home Antigen Caryn t - as directed In Vitro as needed for 30 days 05/13/2024 05/08/2025 Next Appt Details Provider Name:Jeff Yuan, 10/14/2024 03:15:00 PM, [address] [place] [address] [place], [address], Provider Name:Jeff Yuan, 06/15/2025 03:00:00 PM, [address] [place] [address] [place], [address], Progress Notes * Felice ISRAELB:1980 (43 yo F)Acc No.[id number]:05/13/2024 Patient:?Lucy ISRAEL :1980???Age:43 Y???Sex:Female Address: [address], [place], [address] * Refills? Start COVID-19 At Home Antigen Test Kit, -, In Vitro, 1 Kit, as directed, as needed, 30 days, Refills=11 * true * Date:? Generated for Sidney mcpherson/Tomas/eTkristensmitting on:?06/12/2024 12:13 PM EDT
[2024-06-12 12:24] LABS: Alanine Aminotransferase 14 U/L (0-31); Albumin Level 3.9 g/dL (3.5-5.0); Alkaline Phosphatase 89 U/L (39-117); Anion Gap 10 (12-20); Aspartate Amino Transferase 24 U/L (5-31); Bilirubin Total 0.3 mg/dL (0.0-1.0); Blood Urea Nitrogen 11 mg/dL (9-16); Calcium 8.6 mg/dL (8.4-10.2); Carbon Dioxide 24 mmol/L (22-29); Chloride 111 mmol/L (96-108); Cholesterol 204 mg/dL (<200); Estimated Glomerular Filt Rate > 60; Glucose Fasting 87 mg/dL (60-99); HDL Cholesterol 41 mg/dL (>40); LDL Cholesterol Calculated 141 mg/dL (<100); Potassium 4.1 mmol/L (3.3-5.1); Sodium 141 mmol/L (135-145); Total Protein 7.2 g/dL (6.5-8.0); Triglycerides 114 mg/dL (<150)
== END 2024-06-12 10:39 | disposition home or self-care (01) ==
LOC: HO.LAB 10:38
PROVIDERS: PCP Internal Medicine Medical Oncology; Visit Provider Internal Medicine Medical Oncology
DX: E66.9 Obesity, unspecified (principal); K21.9 Gastro-esophageal reflux disease without esophagitis; J45.20 Mild intermittent asthma, uncomplicated
CPT/HCPCS: 36415; 80053; 80061; 85025

== ENCOUNTER 2024-11-03 12:35 | Outpatient (REF) | payer OTHER, SELFPAY ==
--- OUTSIDE RECORDS SUMMARY | 2024-06-10 11:00 | XMS_ITS ---
Author Organization Jeff Yuan III, MD Address [address] [place] [id number] Care Team Providers Care Worm Picker Name Role Phone Jeff Yuan Primary Care Provider Allergies Allergen (clinical drug ingredient) Drug/Non Drug Allergy documented on EMR Reaction Allergy Type Onset Date Status No Known Drug Allergy Unknown Drug Allergy Active Results Component Value Reference Range Notes URINE DIP STICK Reviewed date:06/10/2024 03:14:35 PM Interpretation: Performing Lab: Notes/Report: SG 1.015 1.005 - 1.025 pH 6.5 5.0 - 9.0 ABHI 15+- Negative - NIT negative Negative - PRO 15 Negative - Trace GLU Negative Negative - KET 5 Negative - UBG 0.2 0.1 - 1.8 SOFIYA 1 0.2 - 1.3 BLD Negative Negative - Menstrating No Lipid Panel Reviewed date:06/13/2024 07:53:00 PM Interpretation: Performing Lab:[facility], [address] [place] [id number] Notes/Report: Triglycerides 114 <150 mg/dL Desirable Triglyceride: less than 150 mg/dL Borderline High Triglyceride 150-199 mg/dL High Triglyceride: 200-499 mg/dL Very High Triglyceride: greater than or equal to 5OO mg/dL Cholesterol 204 <200 mg/dL Desirable Cholesterol: less than 200 mg/dL Borderline High Cholesterol: 200-239 mg/dL High Cholesterol: greater than 239 mg/dL LDL Cholesterol Calculated 141 <100 mg/dL Desirable LDL: less than 100 mg/dL Near Optimal/Above Optimal LDL: 110-129 mg/dL Borderline High LDL: 130-159 mg/dL High LDL: 160-189 mg/dL Very High LDL: greater than or equal to 190 mg/dL HDL Cholesterol 41 >40 mg/dL Desirable HDL: greater than 40 mg/dL Note: This HDL assay may give artificially low results in patients with liver disease. Reason For Referral Reason evaluate and treatme nt breast reduction Diagnosis 1 Annual physical exam (Z00.00) Referral Organization Jeff Yuan III, MD Referring Provider First Name Jeff Referring Provider Last Name Yuan Referring Provider Speciality Internal edicine Referred Provider EJ HECK Referred Provider Specialty Plastic and Reconstructive Surgery General Notes Loren Lehman [facility] 06/11 02:11:45 PM >spoke to Dr Heck office they do take patient insurance but pt must have a BMI under 33 and they need a letter of medical necessity for them to see patient., Loren Lehman [facility] 06/15/2024 02:25:13 PM >ref/demo/progress note/letter of medical necessity faxed to Dr Danna Heck office, Loren Lehman [facility] 07/27/2024 02:37:03 PM >Called Stephania office at [phone] they stated pt has appt on Sat07/29/2024 at 3:45pm for consult with Dr Heck Referral Priority Routine Referral Appointment Date 07/29/2024 Reason yearly pelvic and pa p smear Diagnosis 1 Annual physical exam (Z00.00) Referral Organization Jeff Yuan III, MD Referring Provider First Name Jeff Referring Provider Last Name Yuan Referring Provider Speciality Internal edicine Referred Organization [facility] Referred Provider [facility] Referred Address [address] [place] [address],[place], [place],[id number], Referred Provider Specialty OB - Gynecol ogy General Notes Loren Lehman [facility] 06/15 02:11:02 PM > Referral / demo/progress note/labs faxed to Everardo MILLER, Loren Lehman [facility] 07/07/2024 02:43:57 PM >called Everardo SCHREIBERN [phone] they stated they tried to call her x 3 and after that referral is recycled . Referral Priority Routine REASON FOR VISIT Annual Exam Medications Medication SIG (Take, Route, Frequency, Duration) Notes Start Date End Date Status COVID-19 At Home Antigen Test - as directed In Vitro as needed 05/13/2024 Active Omeprazole 40 MG 1 capsule 1/2 to 1 h our before morning meal Orally Once a day for 90 days 06/10/2024 Active valACYclovir HCl 500 MG Take 1 tablet by mouth once daily Active ProAir HFA 108 (90 Base) MCG/ACT 1 puff as needed Inhalation every 4 hrs prn 04/21/2019 Active Melatonin 10 MG as directed Orally Active FLUoxetine HCl 20 MG Take 1 capsule by m outh once daily Active Omeprazole 20 MG 1 capsule 30 minutes before morning meal Orally Once a day Active Social History Tobacco Use: Social History Observation Description Date Details (start date - stop date) Former Smoker NA - NA Sex Assigned At : Social History Observation Description Sex Assigned At Female Tobacco Control (Standard) Question Answer Notes Tobacco use: Former smoker How long has it been since you last smoked? Grea ter than 10 years Additional Findings: Tobacco non-user Ex-cigaret te smoker AUDIT-C (Standard) Question Answer Notes Did you have a drink containing alcohol in the p ast year? No Points 0 Interpretation Negative Problems Problem Type SNOMED Code ICD Code Onset Dates Problem Status W/U Status Risk Notes Problem [id number] Metz's esophagus without dysplasia (K22.70) Active confirmed She carries a diagnosis of Metz's esophagus. She is due to be endoscoped regularly. She is involved with a gastroenterol ogist. She will continue on 40 mg of omeprazole. Vital Signs Temperature 98.0 degrees Fahrenheit 06/11/19 25 Blood pressure systolic 140 mm Hg 06/11/19 25 Blood pressure diastolic 69 mm Hg 025 Heart Rate 57 /min 06/10/2024 Height 69 in 06/10/2024 Weight 214 lbs 06/10/2024 BMI 31.6 kg/m2 06/10/2024 Encounters Encounter Location Date Provider Diagnosis Jeff Yuan III, MD [address] [place] [address] [place] [id number] 06/10/2024 Jeff Yuan Obesity (BMI 30.0-34 .9) E66.9 ; GERD without esophagitis K21.9 ; Mild intermittent asthma without complication J45.20 ; Metz's esophagus without dysplasia K22.70 ; Cervical radiculopathy M54.12 ; Former smoker Z87.891 and Recurrent major depressive disorder, in partial remission F33.41 Assessments Encounter Date Diagnosis (ICD Code) Assessment Notes Treat ment Notes Treatment Clinical Notes 06/10/2024 Obesity (BMI 30.0-34.9) (ICD-10 - E66.9) She has gained 3 pounds in remains in the obese range. We have discussed diet and nutrition. We made a plan to lose weight at a rate of one half of a pound per week through a diet restricted in fat calories and sodium combined with regular physical activity. 06/10/2024 GERD without esophagitis (ICD-10 - K21.9) She was continued on the current 40 mg dose of omeprazole. She reports at 20 mg is ineffective and 40 mg has significantly reduced her heartburn. She is known to have Metz's esophagus. 06/10/2024 Mild intermittent asthma without complication (ICD-10 - J45.20) Her lungs are clear today. She was continued on her regimen without change. She will return to the office at once if she experiences asthma. 06/10/2024 Metz's esophagus without dysplasia (ICD-10 - K22.70) She carries a diagnosis of Metz's esophagus. She is due to be endoscoped regularly. She is involved with a shell grader. She will continue on 40 mg of omeprazole. 06/10/2024 Cervical radiculopathy (ICD-10 - M54.12) The pain has diminished since her last visit. She is being careful to do no heavy lifting or undue exertion. She will call for an appointment if the pain returns. 06/10/2024 Former smoker (ICD-10 - Z87.891) She is well motivated not to smoke. We discussed a strategy to prevent relapse from time to stress or illness. 06/10/2024 Recurrent major depressive disorder, in partial remission (ICD-10 - F33.41) She will continue with her mental health providers. She will continue on the current dose of Prozac. She will be seen frequently. She reports slow improvement with medication. She is not feeling suicidal. Plan Of Treatment Medication Medication Name Sig Start Date Stop Date Notes COVID-19 At Home Antigen Caryn t - as directed In Vitro as needed 05/13/2024 Omeprazole 40 MG 1 capsule 1/2 to 1 h our before morning meal Orally Once a day for 90 days 06/10/2024 valACYclovir HCl 500 MG Take 1 tablet by mouth once daily ProAir HFA 108 (90 Base) MCG/ACT 1 puff as needed Inhalation every 4 hrs prn 04/21/2019 Melatonin 10 MG as directed Orally FLUoxetine HCl 20 MG Take 1 capsule by m outh once daily Omeprazole 20 MG 1 capsule 30 minutes before morning meal Orally Once a day Pending Test Test Name Order Date PROFILE, FASTING (COMPREHENSIVE METABOLI C) 06/10/2024 CBC w DIFF 06/10/2024 Referrals Referral Date Details 06/10/2024 06/10/2024, evaluate and treatment breast reduction, EJ HECK 06/10/2024 06/10/2024, yearly p elvic and pap smear, [facility], [address] [place] [address], [place], [place], [phone], Next Appt Details Follow Up: 4 Months, Reason: ov Provider Name:Jeff Yuan, 06/15/2025 03:00:00 PM, [address] [place] [address], [id number], Progress Notes * Felice ISRAELB:1980 (43 yo F)Acc No.[id number]:06/10/2024 Progress Notes Patient: Lucy BISHOP Provider: Oj Yuan MD :1980 A ge:43 Y S ex:Female Date:06/10/2024 Address:[address] [place], [place] [id number] Subjective: * Chief Complaints: * A nnual Exam * HPI: D epression Screening: She returns to the office at the age of 43 for her annual physical examination. She has been stable since her last visit. We have reviewed numerous medical problems. She stopped taking her antidepressant in May 2024 and does not wish to continue it as she saw no difference without it. She had influenza several weeks ago. Her esophageal complaints of reflux are the same. She is known to have Metz's esophagus. She discussed with me at length the possibility of surgery to cure Metz's esophagus. She continues to have a pain in her upper right neck. She is taking 40 mg of omeprazole every day. She wants to have breast reduction surgery to reduce the pain in her neck. She was referred to plastic surgery to discuss this.He is overdue to see gynecology and was referred back to her AUXILIARY OPERATOR for routine periodic reproductive care. PHQ-9 L ittle interest or pleasure in doing things?Nearly every day F eeling down, depressed, or hopeless S everal days T rouble falling or staying asleep, or sleeping too much N early every day F eeling tired or having little energy N early every day P oor appetite or overeating N early every day F eeling bad about yourself or that you are a failure, or have let yourself or your family down N early every day T rouble concentrating on things, such as reading the newspaper or watching television N ot at all M oving or speaking so slowly that other people could have noticed; or the opposite, being so fidgety or restless that you have been moving around a lot more than usual M ore than half the days T houghts that you would be better off or of hurting yourself in some way N ot at all T otal Score 1 8 I nterpretation M oderately Severe Depression C OVID-19 Screening: Questions H ave you had any new onset fever, chills, cough, congestion, sore throat, shortness of breath, muscle aches? N o S CHEIKH Questions: SDOH Questions I n the past year have you been worried about losing your housing? N o I n the past year have you or any family members you live with been unable to get any of the following when it was really needed? Check all that apply: D ecline to answer * ROS: G eneral/Constitutional: pain O ccasional neck and shoulder pain, otherwise only normal aches and pains. C hills d enies. F atigue a dmits. F ever d enies. E NT: Decreased hearing d enies. R espiratory: Cough d enies. C ardiovascular: Chest pain with exertion d enies. D yspnea on exertion?denies. S hortness of breath d enies. G astrointestinal: Constipation d enies. D ecreased appetite d enies.?Diarrhea d enies. H eartburn d enies. N ausea d enies. R ectal bleeding?denies. V omiting d enies. H ematology: bruising d enies. p etechiae d enies. S wollen glands n one have been noted. G enitourinary: Frequent urination d enies. M usculoskeletal: Muscle aches d enies. P ainful joints d enies. S ciatica d enies. W eakness d enies. S kin: Itching d enies. R rosangela d enies. S kin lesion(s)?denies. N eurologic: Difficulty speaking d enies. D izziness d enies.?Headache d enies. L ow back pain d enies. P sychiatric: Depressed mood w hich is moderate. * Medical History: * Surgical History: l aser surgery both eyes 2019EGD, [facility]. DR.Yesenia King, Barretts esophagus No history * Hospitalization/Major Diagno stic Procedure: [facility] major depression October 2020No history * Family History: F ather: 61 yrs, No information available, healthy and well as far as patient is. M other: 61 yrs, Healthy and well. She says that her parents are healthy [...] substance use disorder, or addictions. * Social History: T obacco Use: T obacco Control (Standard) T obacco use: F ormer smoker H ow long has it been since you last smoked??Greater than 10 years A dditional Findings: Tobacco non-user E x-cigarette smoker D rugs/Alcohol: D rugs H ave you used drugs other than those for medical reasons in the past 12 months? N o D rug/Alcohol: A LAURA-C (Standard) D id you have a drink containing alcohol in the past year? N o P oints 0 I nterpretation N egative S he is to Jeff. She has 2 children. 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 She has no toxic exposures. She is a former smoker. She is not a Yazidi. She was born in [place]. * Medications: T akingvalACYclovir HCl 500 MG Tablet Take 1 tablet by mouth once daily ProAir HFA 108 (90 Base) MCG/ACT Aerosol Solution 1 puff as needed Inhalation every 4 hrs prn Omeprazole 20 MG Capsule Delayed Release 1 capsule 30 minutes before morning meal Orally Once a day Melatonin 10 MG Capsule as directed Orally Taking valACYclovir HCl 500 MG Tablet Take 1 tablet by mouth once daily Taking ProAir HFA 108 (90 Base) MCG/ACT Aerosol Solution 1 puff as needed Inhalation every 4 hrs prn Taking Omeprazole 20 MG Capsule Delayed Release 1 capsule 30 minutes before morning meal Orally Once a day Taking Melatonin 10 MG Capsule as directed Orally Not-Taking/PRNFLUoxetine HCl 20 MG Capsule Take 1 capsule by mouth once daily COVID-19 At Home Antigen Test - Kit as directed In Vitro as needed , stop date 05/08/2025Not-Taking/PRN FLUoxetine HCl 20 MG Capsule Take 1 capsule by mouth once daily Not-Taking/PRN COVID-19 At Home Antigen Test - Kit as directed In Vitro as needed , stop date 05/08/2025DiscontinuedCyclobenzaprine HCl 10 MG Tablet as directed Orally one tablet po q 8 hours prn muscle spasm Medication List reviewed and reconciled with the patientDiscontinued Cyclobenzaprine HCl 10 MG Tablet as directed Orally one tablet po q 8 hours prn muscle spasm Medication List reviewed and reconciled with the patient * Allergies: N o Known Drug Allergyno[Allergies Verified] Objective: * Vitals: H t: 69, Wt: 214, BMI:31.6, BP: 140/69, HR: 57, Temp: 98.0, Ht-cm: 175.26, Wt-k.07. * P ast Orders: L ab:SARS-CoV2/FLU/RSV (Order Date - 05/14/2024) (Collection Date & Time - 05/14/2024 09:22 AM) Value Reference Range Influenza A PCR NEGATIVE Negative - Influenza B PCR POSITIVE A Negative - Resp Syncy Virus RNA Qual PCR NEGATIVE Negative - SARS COV2 PCR INHOUSE NEGATIVE Negative - Lab:URINE DIP STICK * Collection Date 06/10/2024 04/17/2023 04/10/2022 Collection Time 10:25 AM Order Date 06/10/2024 04/17/2023 04/10/2022 SG 1.015 (Ref Range: 1.005 - 1.025) 1.026 (Ref Range: 1.005 - 1.025) 1.010 pH 6.5 (Ref Range: 5.0 - 9.0) 5.0 (Ref Range: 5.0 - 9.0) 7.5 ABHI 15+- (Ref Range: Negative -) Negative (Ref Range: Negative -) Neg NIT negative (Ref Range: Negative -) Negative (Ref Range: Negative -) Neg PRO 15 (Ref Range: Negative - Trace) 15 (Ref Range: Negative - Trace) Neg GLU Negative (Ref Range: Negative -) Negative (Ref Range: Negative -) Neg KET 5 (Ref Range: Negative -) 5 (Ref Range: Negative -) Neg UBG 0.2 (Ref Range: 0.1 - 1.8) 0.2 (Ref Range: 0.1 - 1.8) 0.2 SOFIYA 1 (Ref Range: 0.2 - 1.3) 1 (Ref Range: 0.2 - 1.3) Neg BLD Negative (Ref Range: Negative -) Negative (Ref Range: Negative -) Neg Menstrating No No No * Examination: G eneral Examination: GENERAL APPEARANCE: p leasant, well nourished, well developed, in no acute distress, calm and relaxed, obese, woman. HEAD: a traumatic, normocephalic. EYES: e apolinar, perrla, anicteric, conjugate. EARS: n ormal. NOSE: s eptum intact. ORAL CAVITY: n ormal, unremarkable. NECK/THYROID: n o jugular venous distention, no carotid bruit, thyroid normal, Mild decreased range of motion. LYMPH NODES: n o enlarged lymph nodes,spleen normal. SKIN: n o suspicious lesions, anicteric. HEART: n o clicks, gallops, murmurs, or rubs, regular rhythm, S1, S2 normal, no s3, or vascular bruits. LUNGS: c lear to auscultation . BREASTS: P refers AUXILIARY OPERATOR. ABDOMEN: b owel sounds normal, no ascites, no organomegaly, no mass, centripital obesity. RECTAL EXAM: P refers AUXILIARY OPERATOR. MUSCULOSKELETAL: e xtremities unremarkable, no clubbing, cyanosis or edema, Neck muscles tight. PERIPHERAL PULSES: n ormal. NEUROLOGIC: a lert and oriented, cranial nerves 2-12 grossly intact, deep tendon reflexes 2+ symmetrical, motor strength normal upper and lower extremities, sensory exam intact. PSYCH: a lert, oriented, mood depressed, anxious appearing.? Assessment: * Assessment: 1. O besity (BMI 30.0-34.9) - E66.9 (Primary) N otes :She has gained 3 pounds in remains in the obese range. We have discussed diet and nutrition.? We made a plan to lose weight at a rate of one half of a pound per week through a diet restricted in fat calories and sodium combined with regular physical activity. 2 . G ERD without esophagitis - K21.9 N otes :She was continued on the current 40 mg dose of omeprazole. She reports at 20 mg is ineffective and 40 mg has significantly reduced her heartburn. She is known to have Metz's esophagus. 3 . M ild intermittent asthma without complication - J45.20 N otes :Her lungs are clear today. She was continued on her regimen without change. She will return to the office at once if she experiences asthma. 4 . B arrett's esophagus without dysplasia - K22.70 N otes :She carries a diagnosis of Metz's esophagus. She is due to be endoscoped regularly. She is involved with a shell grader. She will continue on 40 mg of omeprazole. 5 . C ervical radiculopathy - M54.12 N otes :The pain has diminished since her last visit. She is being careful to do no heavy lifting or undue exertion. She will call for an appointment if the pain returns. 6 . F ormer smoker - Z87.891 N otes :She is well motivated not to smoke. We discussed a strategy to prevent relapse from time to stress or illness. 7 . R ecurrent major depressive disorder, in partial remission - F33.41 ? N otes :She will continue with her mental health providers. She will continue on the current dose of Prozac. She will be seen frequently. She reports slow improvement with medication. She is not feeling suicidal. Plan: * Treatment: Value Reference Range T riglycerides 114 <150 - mg/dL * C holesterol 204 H <200 - mg/dL * L DL Cholesterol Calculated 141 H <100 - mg/dL * H DL Cholesterol 41 >40 - mg/dL 2.?GERD without esophagitis?LAB: PROFILE, FASTING (COMPREHENSIVE METABOLIC) ?LAB: CBC w DIFF ?LAB: Lipid Panel (Collection Date & Time - 06/12/2024 10:49 AM)* Value Reference Range T riglycerides 114 <150 - mg/dL * C holesterol 204 H <200 - mg/dL * L DL Cholesterol Calculated 141 H <100 - mg/dL * H DL Cholesterol 41 >40 - mg/dL 3.?Mild intermittent asthma without complication?LAB: PROFILE, FASTING (COMPREHENSIVE METABOLIC) ?LAB: CBC w DIFF ?LAB: Lipid Panel (Collection Date & Time - 06/12/2024 10:49 AM)* Value Reference Range T riglycerides 114 <150 - mg/dL * C holesterol 204 H <200 - mg/dL * L DL Cholesterol Calculated 141 H <100 - mg/dL * H DL Cholesterol 41 >40 - mg/dL 4.?Others? Continue valACYclovir HCl Tablet, 500 MG, Take 1 tablet by mouth once daily;?Continue ProAir HFA Aerosol Solution, 108 (90 Base) MCG/ACT, 1 puff as needed, Inhalation, every 4 hrs prn;?Continue Melatonin Capsule, 10 MG, as directed, Orally;?Start Omeprazole Capsule Delayed Release, 40 MG, 1 capsule 1/2 to 1 hour before morning meal, Orally, Once a day, 90 days, 90, Refills 3.?& #160;? Referral To:EJ HECK??Plastic and Reconstructive Surgery ?Reason:evaluateand treatment breast reduction ? Referral To:[facility]??OB - Gynecology ?Reason:yearly pelvic and pap smear * Labs: * L ab: URINE DIP STICK (Collection Date & Time - 06/10/2024) Value Reference Range S G 1.015 1.005 - 1.025 * p H 6.5 5.0 - 9.0 * L EU 15+- Negative - * N IT negative Negative - * P RO 15 Negative - Trace * G KATHRIN Negative Negative - * K ET 5 Negative - * U BG 0.2 0.1 - 1.8 * B IL 1 0.2 - 1.3 * B LD Negative Negative - * M enstrating No * Procedure Codes: 8 1002 URINE-NO MICRO * Preventive Medicine: Counseling: C are goal follow-up plan: Counseling for abnormal BMI given Y es Above Normal BMI Follow-up D ietary management education, guidance, and counseling, Dietary needs education, Exercise promotion: strength training, Exercise promotion: stretching, Feeding regime, Giving encouragement to exercise, Lifestyle education regarding diet, Nutrition / feeding management, Nutrition therapy, Prescribed activity/exercise education, Prescribed diet education, Prescribed dietary intake, Special diet education, Weight monitoring , Intervention, Order not done: Medical or Other reason not done S moking/Tobacco Use Patient counseled on the dangers of tobacco use and urged to quit. 0 06/10/2024 * Follow Up: 4 Months (Reason: ov) * Images: * Sign off status: Completed true * Provider: Oj Yuan MD Date: 0 06/10/2024 Generated for Sidney mcpherson/Tomas/Zullysmitting on: 0 11/03/2024 01:08 PM EDT History and Physical Notes * HPI (History of Present Illness) Category Sub-Category Detail Notes Depression Screening PHQ-9 Little inte rest or pleasure in doing things: Nearly every day Feeling down, depressed, or hopeless: Se veral days Trouble falling or staying asleep, or sl eeping too much: Nearly every day Feeling tired or having little energy: N early every day Poor appetite or overeating: Nearly ever y day Feeling bad about yourself o r that you are a failure, or have let yourself or your family down: Nearly every day Trouble concentrating on thi ngs, such as reading the newspaper or watching television: Not at all Moving or speaking so slowly that other people could have noticed; or the opposite, being so fidgety or restless that you have been moving around a lot more than usual: More than half the days Thoughts that you would be b baldomero off or of hurting yourself in some way: Not at all Total Score: 18 Interpretation: Moderately Severe Yunior lin COVID-19 Screening Questions Have you had any new onset fever, chills, cough, congestion, sore throat, shortness of breath, muscle aches?: No SDOH Questions SDOH Questions In the past year have you been worried about losing your housing?: No In the past year have you or any family members you live with been unable to get any of the following when it was really needed? Check all that apply:: Decline to answer Examination Category Sub-Category Detail Notes General Examination GENERAL APPEARANCE: pleasant , well nourished, well developed, in no acute distress, calm and relaxed, obese, woman HEAD: atraumatic, normocep halic EYES: eomi, perrla, anicte obdulia, conjugate EARS: normal NOSE: septum intact NECK/THYROID: no jugular venous di stention, no carotid bruit, thyroid normal, Mild decreased range of motion HEART: no clicks, gallops, murmurs, or rubs, regular rhythm, S1, S2 normal, no s3, or vascular bruits LUNGS: clear to auscultatio n ABDOMEN: bowel sounds normal, no ascites, no organomegaly, no mass, centripital obesity NEUROLOGIC: alert and oriented, cranial nerves 2-12 grossly intact, deep tendon reflexes 2+ symmetrical, motor strength normal upper and lower extremities, sensory exam intact SKIN: no suspicious lesion s, anicteric PERIPHERAL PULSES: normal BREASTS: Prefers AUXILIARY OPERATOR MUSCULOSKELETAL: extremities unremark able, no clubbing, cyanosis or edema, Neck muscles tight LYMPH NODES: no enlarged lymph no catherine,spleen normal RECTAL EXAM: Prefers AUXILIARY OPERATOR PSYCH: alert, oriented, moo d depressed, anxious appearing ORAL CAVITY: normal, unremarkable Consultation Request Notes Referral Date Referring Provider Referred Provider Not es 06/10/2024 Jeff Yuan MELISSA evaluate a nd treatment breast reduction 06/10/2024 Jeff Yuan [facility] OBGYN yearly pelvic and pap smear
--- NOTE | ~2024-11-03 | US_ITS ---
EXAMINATION: US CHEST HISTORY: LOCALIZED SWELLING. MASS AND LUMP. SUPRACLAVICULAR MASS COMPARISON: There are no prior studies available for comparison. FINDINGS: Sonographic examination of the left supraclavicular area was performed. No mass is identified. US/US chest IMPRESSION: No sonographic abnormality is seen to correspond to the palpable findings in the left supraclavicular region. Electronically signed by: Jeff Mckeon MD 11/03/2024 01:49 PM EDT
--- OUTSIDE RECORDS SUMMARY | 2024-11-03 13:08 | XMS_ITS | Encounter Summary ---
Author Organization [facility] Address [address] [place] [address] Phone Care Team Providers Care Barrel Charrer Helper Name Role Phone Kamaljit Lux MD Unavailable Loretta Olmedo NP Unavailable [phone] Cristy Shrestha MD Unavailable [phone] Kelton Brown MD Unavailable [phone] Clari Breaux MD Unavailable Zenon Black MD Unavailable [phone] Ida De Leon MD Unavailable [phone] Jeff Yuan MD Primary Care Provider [phone] Encounter Details Date Type Department Care Team (Late st Contact Info) Description 05/14/2019 Ancillary Orders Virtual Department [address] [place] [address] Jeff Yuan MD [address] [place] [address] Abnormal mammogram Social History Tobacco Use Types Packs/Day Years Used Date Smoking Tobacco: Never Smokeless Tobacco: Never Alcohol Use Standard Drinks/Week Comments Yes 0 (1 standard drink = 0.6 oz pur e alcohol) Comments No Sex and Gender Information Value Date Recorded Sex Assigned at Female 12/02/2019 8:30 PM EDT Legal Sex Female 9:23 PM EDT Gender Identity Female 12/02/2019 8:30 PM EDT Sexual Orientation Straight 12/02/2019 8: 30 PM EDT documented as of this encounter Plan of Treatment Not on file documented as of this encounter Results * BI US BREAST LIMITED (LEFT) (05/22/2019 11:14 AM EST) Anatomical Region Laterality Modality Breast Left, Breast Bilateral Left Ul trasound 05/22/2019 11:2 1 AM EST Impressions 05/22/2019 11:22 AM EST Lesion demonstrated on mammography represents a simple cyst. In the absence of clinically significant findings routine screening mammography would appear adequate for follow-up. The results of this examination and the recommendations were reviewed directly with the patient. BI-RADS CATEGORY 2 - BENIGN POS [id number] Narrative 05/22/2019 11:22 AM EST Comparison is made with current mammographic study. At the approximate 9 o'clock position 5 cm from the nipple is a 6 x 5 x 7 mm anechoic structure displaying enhanced through-transmission and no vascularity on color Doppler imaging, correlating well in size and location to the mammographic abnormality and consistent with a cyst. No solid mass or abnormal acoustic shadowing detected in this region. Procedure Note Jaci Fish MD - 05/22/2019 Comparison is made with current mammographic study. At the approximate 9o'clock position 5 cm from the nipple is a 6 x 5 x 7 mm anechoic structuredisplaying enhanced through-transmission and no vascularity on colorDoppler imaging, correlating well in size and location to the mammographicabnormality and consistent with a cyst. No solid mass or abnormalacoustic shadowing detected in this region. IMPRESSION: Lesion demonstrated on mammography represents a simple cyst. In theabsence of clinically significant findings routine screening mammographywould appear adequate for follow-up. The results of this examination and the recommendations were revieweddirectly with the patient. BI-RADS CATEGORY 2 - BENIGN POS [id number] Jeff Yuan MD IM US BREAST Final Resu lt * BI MAMMOGRAM DIAGNOSTIC WITH TOMOSYNTHESIS NO CAD (LEFT) (05/22/2019 10:10 AM EST) Anatomical Region Laterality Modality Breast Left Left Mammography 05/22/2019 10:4 9 AM EST Impressions 05/22/2019 11:11 AM EST Focal density demonstrated on 05/13/2019 represents a simple cyst. In the absence of clinically significant findings routine screening mammography would appear adequate for follow-up. The results of this examination were reviewed directly with the patient. BI-RADS CATEGORY: 2 - Benign finding. DENSITY: There are scattered fibroglandular densities. POS - [id number] Narrative 05/22/2019 11:11 AM EST A craniocaudal spot compression C-view and tomographic study reveals the focal density in the lateral tissues to persist. This was subsequently assessed on ultrasound and found to represent a cyst. Procedure Note Jaci Fish MD - 05/22/2019 A craniocaudal spot compression C-view and tomographic study reveals thefocal density in the lateral tissues to persist. This was subsequentlyassessed on ultrasound and found to represent a cyst. IMPRESSION: Focal density demonstrated on 05/13/2019 represents a simple cyst. In theabsence of clinically significant findings routine screening mammographywould appear adequate for follow-up. The results of this examination were reviewed directly with the patient. BI-RADS CATEGORY: 2 - Benign finding. DENSITY: There are scattered fibroglandular densities. POS - [id number] Jeff Yuan MD IMG MG EXAMS Final Resu lt documented in this encounter Visit Diagnoses Diagnosis Abnormal mammogram Abnormal mammogram, unspecified Abnormal mammogram Abnormal mammogram, unspecified Abnormal mammogram Abnormal mammogram, unspecified documented in this encounter Care Teams Barrel Charrer Helper Relationship Specialty Start Date End Date Jeff Yuan MD [address] [place] [address] PCP - General Medical Oncology 05/14/19 Kamaljit Lux MD [address] [place] [address], [address] [place] [address] Historical LMR Provider 01/19/17 Loretta Olmedo RAISE DRILLER [address] [place] [address] Historical LMR Provider 01/19/17 04/08/21 Cristy Shrestha MD [address] [place] [address] Historical LMR Provider 01/19/17 04/08/21 Kelton Brown MD [address] [place] [address] Historical LMR Provider 01/19/17 2 Clari Breaux MD [address] [place] [address] Historical LMR Provider 01/19/17 Zenon Black MD [address] [place] [address] Historical LMR Provider 01/19/17 Ida De Leon MD [address] [place] [address] Historical LMR Provider 01/19/17 2 documented as of this encounter Additional Source Comments The information contained in this document represents components of the legal health record. It is not the complete legal health record.[facility]
== END 2024-11-03 12:36 | disposition home or self-care (01) ==
LOC: HO.US 12:35
PROVIDERS: PCP Internal Medicine Medical Oncology; Visit Provider Internal Medicine Medical Oncology
DX: R22.2 Localized swelling, mass and lump, trunk (principal)
CPT/HCPCS: 76604

== ENCOUNTER → 2024-11-03 12:56 | Outpatient (BNV) | payer OTHER, SELFPAY | PROVIDERS: PCP Internal Medicine Medical Oncology; Visit Provider Radiology Diagnostic Radiology | DX: R22.1 Localized swelling, mass and lump, neck (principal) | CPT/HCPCS: 76604 ==